=== PATIENT | male | born 1940 | race Caucasian/White ===

== ENCOUNTER 2017-08-17 09:21 | Inpatient (IN) | payer MEDICARE ==
[2017-08-17] MEDS ORDERED: Sodium Chloride 0.9% 1,000 ML IV SCH (10:00)
[2017-08-17] MEDS ORDERED: fentaNYL 100 MCG/2 ML SDV ONE (11:47)
[2017-08-17] MEDS ORDERED: Propofol 200 MG/20 ML SDV ONE ×2 (11:47→11:51)
[2017-08-17] MEDS ORDERED: Dextrose 5%-Lactated Ringers 1,000 ML IV SCH (15:00)
--- NOTE | 2017-08-17 16:27 | PROC ---
DATE OF PROCEDURE: 08/17/2017 PROCEDURE PERFORMED: Esophagogastroduodenoscopy. This had been done because of GI blood loss. The risks and benefits were explained to the patient and was taken to the OR. DESCRIPTION OF PROCEDURE: Anesthesia was given by nurse operational risk analyst. The Olympus 180 scope was used. This was placed into the pharynx and advanced under direct vision, got into the body of the stomach. There was significant erythema noted in the body of the stomach. The tube was advanced and identified the pylorus and the tube was advanced into the 1st and 2nd part of the duodenum. Upon retraction of the tube, noted significant duodenal erythema, pictures were taken of the small intestine and the duodenal bulb area. There were no ulcerations, but significant swelling and with edema was noted. The tube was brought back into the stomach, there was a biopsy done for Helicobacter pylori in the antrum. We got greater and lesser curvature, good observation. The tube was retroflexed into the fundus, which revealed no abnormality. The tube was then advanced into the area where the biopsy was done and there was no bleeding noted. Air was withdrawn from the stomach. There was significant distal esophageal erythema. The remainder of the esophagus was unremarkable. There was some significant amount of mucus noted in the pharynx. I did not get observation of the vocal cords. The tube was removed. The patient tolerated the procedure well. PREOPERATIVE DIAGNOSIS: Gastrointestinal blood loss. POSTOPERATIVE DIAGNOSES: 1. Significant gastric mucosa erythema. 2. Duodenal erythema, biopsy pending. 3. Distal esophageal erythema. 4. Biopsies pending of the antrum for Helicobacter pylori. PROCEDURE PERFORMED: Colonoscopy. The risks and benefits were explained to the patient. DESCRIPTION OF THE PROCEDURE: Anesthesia was given by nurse operational risk analyst. During procedure used 100 mcg of fentanyl, no Versed, and 300 mg of propofol. The Olympus 180L scope was used. It was placed into the rectum and advanced under direct vision. We did get to the cecum with external pressure. Just proximal to the Cecum was a small napkin ring lesion that was biopsied. A picture was also taken. The biopsy report is pending. Upon retraction of the tube, noted no abnormality until we got to 3 cm, noted 2 polyps. One was very difficult to get, but did finally get the one close to the rectum at 29 cm and we tried to basket, could not basket, we finally used suction and did harvest that. The other polyp was still in place, was unable to bend the scope to remove that. The remainder of the colon was unremarkable. Pictures were taken of everything of importance. The tube was removed. The patient tolerated the procedure well. PREOPERATIVE DIAGNOSIS: Gastrointestinal blood loss. POSTOPERATIVE DIAGNOSIS: #1. Two polyps noted at 29 and 31 cm, one was harvested, the polyp was 1.5 cm in size. Another one is still in the colon at just over 30 cm. I feel that he needs a colon resection as there is still material left at the stump of the polyp that was removed. #2. Lesion just proximal to the Cecum biopsied. I will speak with he and his . We will speak with the surgeon to see if he wants to have it done right away. Perez Isaac MD /[id number] MTDD
[2017-08-17] MEDS: Propranolol 10 MG Tab PO SCH ×2 (16:52→21:45)
--- NOTE | 2017-08-17 19:03 | PCM.HP ---
H&P History of Present Illness - General Date of Service: 08/17/17 Admit Problem/Dx: Admission Diagnosis/Problem Admission Diagnosis/Problem Mass of colon Source of Information: Patient History Limitations: Reports: No Limitations - History of Present Illness Initial Comments - Free Text/Narative: This is a 76 year old male who was found to have stool positive for accult blood. He had been having changes in the color of his stool but not black or red in color. He had a colonoscopy and a EGD today. He was found to have 2 polyps at 30 cm and a broad based lesion just prior to the cecum. He was admitted to have a colon resection. Bilateral Abdomen Pain Score (Numeric/FACES): 5 - Related Data Allergies/Adverse Reactions: Allergies Allergy/AdvReac Type Severity Reaction Status Date / Time ANGELICA Inhibitors Allergy Cannot Verified 08/17/17 09:49 Remember diltiazem Allergy Other Verified 08/17/17 09:49 Home Medications: Home Meds Propranolol [Inderal] 20 mg PO QID 08/14/17 [History] cloNIDine [Catapres] 0.1 mg PO BID 08/14/17 [History] Past Medical History HEENT History: Reports: Allergic Rhinitis, Cataract Cardiovascular History: Reports: Hypertension Respiratory History: Reports: SOB Gastrointestinal History: Reports: None Musculoskeletal History: Reports: Arthritis, Other (See Below) Other Musculoskeletal History: rib pain - Infectious Disease History Infectious Disease History: Reports: Chicken Pox - Past Surgical History HEENT Surgical History: Reports: Cataract Surgery Cardiovascular Surgical History: Reports: None Respiratory Surgical History: Reports: None GI Surgical History: Reports: Appendectomy, Other (See Below) Other GI Surgeries/Procedures: pilonidal cyst Musculoskeletal Surgical History: Reports: None Social & Family History - Family History Cardiac: Reports: Hypertension Musculoskeletal: Reports: Arthritis, Back pain, Chronic Neurological: Reports: Alzheimers Disease Other Neurological Family History: father Dermatologic: Reports: None Oncologic: Reports: Bladder Other Oncologic Family History: father - Tobacco Use Smoking Status *Q: Never Smoker Second Hand Smoke Exposure: No - Caffeine Use Caffeine Use: Reports: Coffee - Alcohol Use Days Per Week of Alcohol Use: 5 Number of Drinks Per Day: 2 Total Drinks Per Week: 10 Date of Last Drink: 08/16/17 Time of Last Drink: 18:00 - Recreational Drug Use Recreational Drug Use: No H&P Review of Systems - Review of Systems: Review Of Systems: See Below General: Reports: No Symptoms HEENT: Reports: No Symptoms Pulmonary: Reports: No Symptoms Cardiovascular: Reports: No Symptoms Gastrointestinal: Reports: No Symptoms Genitourinary: Reports: No Symptoms Musculoskeletal: Reports: No Symptoms Skin: Reports: No Symptoms Psychiatric: Reports: No Symptoms Neurological: Reports: No Symptoms Hematologic/Lymphatic: Reports: No Symptoms Exam - Exam Exam: See Below - Vital Signs Vital Signs: Last Vital Signs Temp 97.0 F 08/17/17 16:48 Pulse 65 08/17/17 16:52 Resp 14 08/17/17 16:48 BP 205/94 H 08/17/17 16:52 Pulse Ox 99 08/17/17 16:48 Weight: 165 lb - Exam General: Alert, Oriented, 4 HEENT: PERRLA, Hearing Intact, Mucosa Moist & [place], Nares Patent, Normal Nasal Septum, Posterior Pharynx Clear, Conjunctiva Clear, EOMI, EACs Clear, TMs Clear Neck: Supple, Trachea Midline, 2 Lungs: Clear to Auscultation, Normal Respiratory Effort Cardiovascular: Regular Rate, Regular Rhythm GI/Abdominal Exam: Normal Bowel Sounds, Soft, Non-Tender, No Organomegaly, No Distention, No Abnormal Bruit, No Mass, Pelvis Stable Rectal (Males) Exam: Normal Exam Back Exam: Normal Inspection, Full Range of Motion, NT Extremities: Normal Inspection, Normal Range of Motion, Non-Tender, No Pedal Edema, Normal Capillary Refill Peripheral Pulses: 1+: Radial (L), Radial (R) Skin: Warm, Dry, Intact Neurological: Cranial Nerves Intact, Reflexes Equal Bilateral Neuro Extensive - Motor, Sensory, Reflexes: CN II-XII Intact, Normal Gait, Normal Reflexes DTR: 1+: Bicep (L), Bicep (R) Psychiatric: Alert, Normal Affect, Normal Mood - Patient Data Lab Results Last 24 hrs: Laboratory Results - last 24 hr 08/17/17 08/17/17 08/17/17 Range/Units 15:44 15:44 15:44 WBC 5.4 (4.5-11.0) K/uL RBC 4.71 (4.30-5.90) M/uL Hgb 14.4 (12.0-15.0) g/dL Hct 42.9 (40.0-54.0) % MCV 91 (80-98) fL MCH 31 (27-31) pg MCHC 34 (32-36) % Plt Count 196 (150-400) K/uL Sodium 133 L (140-148) mmol/L Potassium 3.9 (3.6-5.2) mmol/L Chloride 101 (100-108) mmol/L Carbon Dioxide 25 (21-32) mmol/L Anion Gap 10.9 (5.0-14.0) mmol/L BUN 10 (7-18) mg/dL Creatinine 1.1 (0.8-1.3) mg/dL Est Cr Clr Drug Dosing 59.53 mL/min Estimated GFR (MDRD) > 60 (>60) Glucose 137 H (74-106) mg/dL Calcium 8.7 (8.5-10.1) mg/dL Phosphorus 2.9 (2.5-4.9) mg/dL Magnesium 1.8 (1.8-2.4) mg/dL Total Bilirubin 0.7 (0.2-1.0) mg/dL AST 21 (15-37) U/L ALT 25 (12-78) U/L Alkaline Phosphatase 48 (46-116) U/L Total Protein 6.6 (6.4-8.2) g/dL Albumin 3.5 (3.4-5.0) g/dL Globulin 3.1 (2.3-3.5) g/dL Albumin/Globulin Ratio 1.1 L (1.2-2.2) Result Diagrams: 08/17/17 15:44 08/17/17 15:44 Cruz Results Last 24 hrs: Microbiology 08/17/17 11:50 CLOtest - Final Stomach Positive Clotest *Q Meaningful Use (ADM) - VTE *Q VTE Criteria *Q: - Stroke *Q Stroke Criteria *Q: - AMI *Q AMI Criteria *Q: Problem List Initiated/Reviewed/Updated: Yes Orders Last 24hrs: Active Orders 24 hr Category Date Time Status Admission Status [Patient Status] [ADT] Routine ADT 08/17/17 13:00 Active Ambulate [RC] QID Care 08/17/17 15:27 Active Communication Order [RC] ASDIRECTED Care 08/17/17 15:35 Active Intake and Output Strict [RC] ASDIRECTED Care 08/17/17 15:41 Active Notify Provider Consults [RC] ASDIRECTED Care 08/17/17 13:38 Active Up ad Liliam [RC] ASDIRECTED Care 08/17/17 13:35 Active Up to Chair [RC] QID Care 08/17/17 15:27 Active Verify Patient Consent Obtain [RC] ASDIRECTED Care 08/17/17 15:32 Active Vital Signs [RC] Q4H Care 08/17/17 15:27 Active Consult to Physician [CONS] Routine Cons 08/17/17 13:36 Ordered Clear Liquid Diet [DIET] Diet 08/17/17 Dinner Active NPO After Midnight [Nothing per Oral After Midnight Diet 08/18/17 Breakfast Active Diet] [DIET] CEA [REF] Routine Lab 08/17/17 15:44 Received Alvimopan [Entereg] Med 08/18/17 08:00 Once 12 mg PO ONETIME ONE Dextrose 5%-Lactated Ringers 1,000 ml Med 08/17/17 15:00 Active IV ASDIRECTED Docusate Sodium/Sennosides [Senna Plus] Med 08/17/17 21:00 Active 2 tab PO BEDTIME Propranolol [Inderal] Med 08/17/17 16:00 Active 20 mg PO QID cefOXitin [Mefoxin] 2 gm Med 08/18/17 10:00 Active Sodium Chloride 0.9% [Normal Saline] 50 ml IV ONETIME SCD [Sequential Compression Device] [OM.PC] Routine Oth 08/17/17 13:38 Ordered Code Status [Resuscitation Status] Routine Resus Stat 08/17/17 13:34 Ordered Medication Orders Alvimopan (Entereg) 12 mg PO ONETIME ONE Stop: 08/18/17 08:01 Dextrose/Lactated Ringer's (Dextrose 5%-Lactated Ringers) 1,000 mls @ 100 mls/ hr IV ASDIRECTED CEDRICK Cefoxitin Sodium 2 gm/ Sodium (Chloride) 50 mls @ 100 mls/hr IV ONETIME ONE Stop: 08/18/17 10:29 Propranolol HCl (Inderal) 20 mg PO QID CEDRICK Last Admin: 08/17/17 16:52 Dose: 20 mg Senna/Docusate Sodium (Senna Plus) 2 tab PO BEDTIME CEDRICK Stop: 08/17/17 21:01 Assessment/Plan Comment:: Assessment/Plan: #1. Colonic polyps at 30 cm and broad based lesion at proximal to the cecum. #2. Hypertension: Will continue with Propanolol and add Caudura tonight. EKG is pending and labs evual. If these are normal he will be stable for the surgery as planned.
[2017-08-17] MEDS ORDERED: cloNIDine 0.1 MG Tab PO ONE ×2 (19:19→23:30)
[2017-08-18] MEDS ORDERED: Ondansetron 4 MG/2 ML SDV ONE (06:14)
[2017-08-18] MEDS ORDERED: Glycopyrrolate 0.2 MG/ML 5 ML MDV ONE (06:14)
[2017-08-18] MEDS ORDERED: Rocuronium 50 MG/5 ML Vial ONE (06:14)
[2017-08-18] MEDS ORDERED: Neostigmine Methylsulfate 1 MG/ML 5 ML Syringe ONE (06:14)
[2017-08-18] MEDS ORDERED: Succinylcholine 200 MG/10 ML MDV ONE (06:14)
[2017-08-18] MEDS ORDERED: Propofol 200 MG/20 ML SDV ONE (06:14)
[2017-08-18] MEDS ORDERED: Dexamethasone 4 MG/ML SDV ONE (06:14)
[2017-08-18] MEDS: Propranolol 10 MG Tab PO SCH ×3 (06:34→09:42)
[2017-08-18] MEDS ORDERED: Naloxone 0.4 MG/ML SDV IVPUSH PRN (08:49)
--- NOTE | 2017-08-18 09:07 | PN ---
DATE OF SERVICE: 08/18/2017 SUBJECTIVE: Ron is n.p.o. He will be having surgery today with general anesthesia. OBJECTIVE: GENERAL: Ron is a 76-year-old male. VITAL SIGNS: TPR is 95.5, 60, 16. Blood pressure 122/86. Dr. Marshall preoped the patient. Discussed surgery. Instructions were given as well as discussion of possible risks and possible complications. ASSESSMENT: Abnormal colonoscopy, anxiety, essential hypertension. PLAN: To remain n.p.o. Laparotomy scheduled for today. Case to follow. Orders to be written postoperatively. Ignacia Franklin PA-C /[id number]
[2017-08-18] MEDS ORDERED: cefOXitin 2 GM in Sodium Chloride 0.9% 50 ML IV ONE (10:00)
[2017-08-18] MEDS ORDERED: Lactated Ringers 1,000 ML ONE ×2 (10:27→11:45)
[2017-08-18] MEDS ORDERED: Sodium Chloride 0.9% 10 ML ONE (10:27)
[2017-08-18] MEDS ORDERED: Meropenem 500 MG SDV ONE ×2 (10:50→11:56)
[2017-08-18] MEDS ORDERED: diphenhydrAMINE 50 MG/ML SDV IVPUSH PRN (14:25)
[2017-08-18] MEDS ORDERED: Meperidine PF 75 MG/ML Syringe IM PRN (14:29)
[2017-08-18] MEDS: Dextrose 5%-Lactated Ringers 1,000 ML IV SCH ×2 (14:44→20:29)
[2017-08-18] MEDS: fentaNYL 2,500 MCG in Sodium Chloride 0.9% 200 ML EPIDUR SCH (15:45)
[2017-08-18] MEDS: cefOXitin 2 GM in Sodium Chloride 0.9% 50 ML IV SCH ×2 (15:52→20:29)
[2017-08-18] MEDS ORDERED: Scopolamine 1.5 MG Transdermal Patch TOP SCH (16:00)
[2017-08-18] MEDS: Metoclopramide 10 MG/2 ML SDV IV SCH ×2 (16:00→21:25)
[2017-08-18] MEDS ORDERED: Pantoprazole 40 MG Vial IV ONE (16:30)
[2017-08-18] MEDS: Tamsulosin 0.4 MG Cap.ER PO SCH (20:23)
--- NOTE | 2017-08-18 22:32 | PCM.PN ---
- General Info Date of Service: 08/18/17 Admission Dx/Problem (Free Text): Saw him now before and after surgery and is stable he having no complaints. Functional Status: Reports: Pain Controlled - Review of Systems HEENT: Reports: No Symptoms Pulmonary: Reports: No Symptoms Cardiovascular: Reports: No Symptoms Gastrointestinal: Reports: Abdominal Pain Genitourinary: Reports: No Symptoms Musculoskeletal: Reports: No Symptoms Neurological: Reports: No Symptoms Psychiatric: Reports: No Symptoms - Patient Data Vitals - Most Recent: Last Vital Signs Temp 99.9 F 08/18/17 20:00 Pulse 87 08/18/17 20:00 Resp 14 08/18/17 20:00 BP 154/86 H 08/18/17 20:00 Pulse Ox 98 08/18/17 20:00 Weight - Most Recent: 165 lb I&O - Last 24 Hours: Intake & Output 08/18/17 08/18/17 08/18/17 06:59 14:59 22:59 Intake Total 651 47 0990 Output Total 800 1065 655 Balance -11 -8385 780 Med Orders - Current: Current Medications Acetaminophen (Tylenol Extra Strength) 1,000 mg PO Q6H CEDRICK Alvimopan (Entereg) 12 mg PO BID CEDRICK Last Admin: 08/18/17 20:23 Dose: 12 mg Bisacodyl (Dulcolax) 10 mg PO BID CEDRICK Diphenhydramine HCl (Benadryl) 25 mg IVPUSH Q6H PRN PRN Reason: ITCHING Fentanyl 2,500 mcg/ Sodium (Chloride) 250 mls @ 0 mls/hr EPIDUR TITRATE CEDRICK; Titrate PRN Reason: Protocol Last Admin: 08/18/17 15:45 Dose: 12 mls/hr, 12 mls/hr Dextrose/Lactated Ringer's (Dextrose 5%-Lactated Ringers) 1,000 mls @ 175 mls/ hr IV ASDIRECTED CEDRICK Last Admin: 08/18/17 20:29 Dose: 175 mls/hr Cefoxitin Sodium 2 gm/ Sodium (Chloride) 50 mls @ 100 mls/hr IV Q6H CEDRICK Stop: 08/19/17 03:59 Last Admin: 08/18/17 20:29 Dose: 100 mls/hr Acetaminophen (Ofirmev) 100 mls @ 400 mls/hr IV Q6H CEDRICK Stop: 08/19/17 00:14 Last Admin: 08/18/17 17:55 Dose: 400 mls/hr Ibuprofen (Motrin) 600 mg PO Q6H [facility] Meperidine HCl (Demerol) 75 mg IM ASDIRECTED PRN PRN Reason: PAIN Stop: 08/19/17 08:00 Metoclopramide HCl (Reglan) 10 mg IV Q6H [facility] Last Admin: 08/18/17 21:25 Dose: 10 mg Miscellaneous Information (Remove Patch) 1 ea TRDERM ONETIME ONE Stop: 08/21/17 14:01 Naloxone HCl (Narcan) 0.1 mg IVPUSH Q5M PRN PRN Reason: RESP RATE LESS THAN 6/MINUTE Ondansetron HCl (Zofran) 4 mg IV Q4H PRN PRN Reason: N/V Pantoprazole Sodium (Protonix) 40 mg PO ACBREAKFAST [facility] Scopolamine (Transderm-Scop) 1.5 mg TOP Q72H [facility] Stop: 08/21/17 15:45 Last Admin: 08/18/17 15:22 Dose: 1.5 mg Senna/Docusate Sodium (Senna Plus) 2 tab PO DAILY [facility] Last Admin: 08/18/17 20:23 Dose: 2 tab Tamsulosin HCl (Flomax) 0.4 mg PO BEDTIME [facility] Last Admin: 08/18/17 20:23 Dose: 0.4 mg Discontinued Medications Alvimopan (Entereg) 12 mg PO ONETIME ONE Stop: 08/18/17 08:01 Last Admin: 08/18/17 07:26 Dose: 12 mg Clonidine HCl (Catapres) 0.1 mg PO ONETIME ONE Stop: 08/17/17 19:20 Last Admin: 08/17/17 19:32 Dose: 0.1 mg Clonidine HCl (Catapres) 0.1 mg PO ONETIME ONE Stop: 08/17/17 23:31 Last Admin: 08/17/17 23:21 Dose: Not Given Dexamethasone (Dexamethasone) Confirm Administered Dose 4 mg .ROUTE .STK-MED ONE Stop: 08/18/17 06:15 Fentanyl (Sublimaze) Confirm Administered Dose 100 mcg .ROUTE .STK-MED ONE Stop: 08/17/17 11:48 Fentanyl Citrate (Fentanyl) Confirm Administered Dose 500 mcg .ROUTE .STK-MED ONE Stop: 08/18/17 06:15 Glycopyrrolate (Robinul) Confirm Administered Dose 1 mg .ROUTE .STK-MED ONE Stop: 08/18/17 06:15 Sodium Chloride (Normal Saline) 1,000 mls @ 100 mls/hr IV ASDIRECTED [facility] Last Admin: 08/17/17 10:07 Dose: 100 mls/hr Dextrose/Lactated Ringer's (Dextrose 5%-Lactated Ringers) 1,000 mls @ 100 mls/ hr IV ASDIRECTED [facility] Last Admin: 08/18/17 02:24 Dose: 100 mls/hr Cefoxitin Sodium 2 gm/ Sodium (Chloride) 50 mls @ 100 mls/hr IV ONETIME ONE Stop: 08/18/17 10:29 Last Admin: 08/18/17 09:49 Dose: 100 mls/hr Sodium Chloride (Normal Saline) Confirm Administered Dose 10 mls @ as directed .ROUTE .STK-MED ONE Stop: 08/18/17 10:28 Lactated Ringer's (Ringers, Lactated) Confirm Administered Dose 1,000 mls @ as directed .ROUTE .STK-MED ONE Stop: 08/18/17 10:28 Acetaminophen (Ofirmev) Confirm Administered Dose 100 mls @ as directed IV .STK- MED ONE Stop: 08/18/17 10:28 Lactated Ringer's (Ringers, Lactated) Confirm Administered Dose 1,000 mls @ as directed .ROUTE .STK-MED ONE Stop: 08/18/17 11:46 Meropenem (Merrem) Confirm Administered Dose 500 mg .ROUTE .STK-MED ONE Stop: 08/18/17 10:51 Last Admin: 08/18/17 12:00 Dose: 500 mg Meropenem (Merrem) Confirm Administered Dose 500 mg .ROUTE .STK-MED ONE Stop: 08/18/17 11:57 Last Admin: 08/18/17 12:04 Dose: 500 mg Neostigmine Methylsulfate (Neostigmine) Confirm Administered Dose 5 mg .ROUTE .STK-MED ONE Stop: 08/18/17 06:15 Ondansetron HCl (Zofran) Confirm Administered Dose 4 mg .ROUTE .STK-MED ONE Stop: 08/18/17 06:15 Pantoprazole Sodium (Protonix Iv) 40 mg IV ONETIME ONE Stop: 08/18/17 16:31 Last Admin: 08/18/17 16:05 Dose: 40 mg Propofol (Diprivan 20 Ml) Confirm Administered Dose 200 mg .ROUTE .STK-MED ONE Stop: 08/17/17 11:48 Propofol (Diprivan 20 Ml) Confirm Administered Dose 200 mg .ROUTE .STK-MED ONE Stop: 08/17/17 11:52 Propofol (Diprivan 20 Ml) Confirm Administered Dose 200 mg .ROUTE .STK-MED ONE Stop: 08/18/17 06:15 Propranolol HCl (Inderal) 20 mg PO QID [facility] Last Admin: 08/18/17 09:42 Dose: Not Given Rocuronium [place] (Zemuron) Confirm Administered Dose 50 mg .ROUTE .STK-MED ONE Stop: 08/18/17 06:15 Senna/Docusate Sodium (Senna Plus) 2 tab PO BEDTIME CEDRICK Stop: 08/17/17 21:01 Last Admin: 08/17/17 21:23 Dose: 2 tab Succinylcholine Chloride (Quelicin) Confirm Administered Dose 200 mg .ROUTE .STK -MED ONE Stop: 08/18/17 06:15 - Exam General: Alert, Oriented Lungs: Clear to Auscultation, Normal Respiratory Effort Extremities: Normal Inspection, Normal Range of Motion, Non-Tender, No Pedal Edema, Normal Capillary Refill Peripheral Pulses: 1+: Radial (L), Radial (R) Psy/Mental Status: Alert, Normal Affect, Normal Mood - Problem List Review Problem List Initiated/Reviewed/Updated: Yes - Assessment Assessment:: Assessment/Plan: #1. S/P surgery doing well. BP elevated but stable. @2. HTN: Will need to restart Inderal tomorrow. - Plan Plan:: Assessment/Plan: #1. Colonic polyps at 30 cm and broad based lesion at proximal to the cecum. #2. Hypertension: Will continue with Propanolol and add Caudura tonight. EKG is pending and labs evual. If these are normal he will be stable for the surgery as planned.
[2017-08-19] MEDS: cefOXitin 2 GM in Sodium Chloride 0.9% 50 ML IV SCH (03:11)
[2017-08-19] MEDS: Metoclopramide 10 MG/2 ML SDV IV SCH ×4 (03:11→22:01)
[2017-08-19] MEDS: Dextrose 5%-Lactated Ringers 1,000 ML IV SCH ×3 (03:16→22:20)
[2017-08-19] MEDS: fentaNYL 2,500 MCG in Sodium Chloride 0.9% 200 ML EPIDUR SCH (05:35)
[2017-08-19] MEDS: Acetaminophen 500 MG Tab PO SCH ×4 (05:40→23:25)
[2017-08-19] MEDS: Pantoprazole 40 MG Tab.CR PO SCH (07:31)
[2017-08-19] MEDS: Bisacodyl 5 MG Tab PO SCH ×2 (08:14→22:00)
[2017-08-19] MEDS ORDERED: Metoprolol Succinate 50 MG Tab.ER PO SCH (09:00)
[2017-08-19] MEDS: Ibuprofen 600 MG Tab PO SCH ×3 (09:41→22:01)
[2017-08-19] MEDS ORDERED: cloNIDine 0.1 MG Tab PO ONE ×2 (13:15→15:10)
[2017-08-19] MEDS ORDERED: Furosemide 20 MG/2 ML VIAL IVPUSH ONE (17:15)
--- NOTE | 2017-08-19 18:02 | PN ---
DATE OF SERVICE: 08/19/2017 SUBJECTIVE: Ron is postop day 1. His pain is controlled. He is sitting up in the chair. He had a temp max of 100.4. TAMERA drain put out 160 mL of a light pink serosanguineous drainage. REVIEW OF SYSTEMS: Remainder of review of systems negative for any pertinent positives and negatives. OBJECTIVE: GENERAL: Ron Hong is a pleasant 76-year-old male. He is alert and orientated, sitting up in the chair. VITAL SIGNS: TPR 97.9, 117, 16, blood pressure 162/89. HEENT: Negative. NECK: Supple. HEART: Regular rate and rhythm. LUNGS: Clear. ABDOMEN: Dressings dry and intact. Abdominal binder is on. TAMERA drain has put out 160 mL of a light pink serosanguineous drainage. EXTREMITIES: SCDs are on. There is no peripheral edema. ASSESSMENT: 1. Esophagogastroduodenoscopy and colonoscopy with biopsies; date 08/17/2017; Perez Isaac MD. 2. Sigmoid colon resection; Armand Marshall MD; date 08/18/2017. PLAN: 1. Leave Frances catheter in for accurate intake and output. 2. Decrease IV to 80 mL/h. 3. Hypertension, treated and followed by Perez Isaac MD. 4. Good pulmonary toilet encouraged. 5. We will evaluate p.r.n. or in a.m. Ignacia Franklin PA-C /[id number]
[2017-08-19] MEDS ORDERED: LORazepam 2 MG/ML MDV IVPUSH PRN (20:13)
[2017-08-19] MEDS: Metoprolol Tartrate 5 MG/5 ML SDV IVPUSH SCH (21:28)
--- NOTE | 2017-08-19 21:41 | PCM.PN ---
- General Info Date of Service: 08/19/17 Subjective Update: He has no complaint. - Review of Systems General: Reports: No Symptoms HEENT: Reports: No Symptoms Pulmonary: Reports: No Symptoms Cardiovascular: Reports: No Symptoms Gastrointestinal: Reports: Abdominal Pain Genitourinary: Reports: No Symptoms Musculoskeletal: Reports: No Symptoms Neurological: Reports: No Symptoms Psychiatric: Reports: No Symptoms - Patient Data Vitals - Most Recent: Last Vital Signs Temp 99 F 08/19/17 19:51 Pulse 95 08/19/17 21:35 Resp 20 08/19/17 19:51 BP 150/95 H 08/19/17 21:35 Pulse Ox 99 08/19/17 19:51 Weight - Most Recent: 165 lb I&O - Last 24 Hours: Intake & Output 08/19/17 08/19/17 08/19/17 06:59 14:59 22:59 Intake Total 1041 2040 1550 Output Total 2140 495 587 Balance -1099 1545 963 Lab Results Last 24 Hours: Laboratory Results - last 24 hr 08/17/17 Range/Units 15:44 Carcinoembryonic Ag 1.1 (0.0-3.7) ng/mL Med Orders - Current: Current Medications Acetaminophen (Tylenol Extra Strength) 1,000 mg PO Q6H [facility] Last Admin: 08/19/17 17:21 Dose: 1,000 mg Alvimopan (Entereg) 12 mg PO BID [facility] Last Admin: 08/19/17 08:14 Dose: 12 mg Bisacodyl (Dulcolax) 10 mg PO BID [facility] Last Admin: 08/19/17 08:14 Dose: 10 mg Diphenhydramine HCl (Benadryl) 25 mg IVPUSH Q6H PRN PRN Reason: ITCHING Fentanyl 2,500 mcg/ Sodium (Chloride) 250 mls @ 0 mls/hr EPIDUR TITRATE [facility]ICK; Titrate PRN Reason: Protocol Last Admin: 08/19/17 05:35 Dose: 12 mls/hr, 12 mls/hr Dextrose/Lactated Ringer's (Dextrose 5%-Lactated Ringers) 1,000 mls @ 80 mls/ hr IV ASDIRECTED [facility] Last Admin: 08/19/17 10:32 Dose: 80 mls/hr Ibuprofen (Motrin) 600 mg PO Q6H [facility] Last Admin: 08/19/17 16:37 Dose: 600 mg Lorazepam (Ativan) 0.5 mg IVPUSH Q2H PRN PRN Reason: Anxiety Metoclopramide HCl (Reglan) 10 mg IV Q6H [facility] Last Admin: 08/19/17 16:38 Dose: 10 mg Metoprolol Succinate (Toprol Xl) 100 mg PO DAILY [facility] Last Admin: 08/19/17 10:01 Dose: 100 mg Metoprolol Tartrate (Lopressor) 5 mg IVPUSH Q6H [facility] Last Admin: 08/19/17 21:28 Dose: 5 mg Miscellaneous Information (Remove Patch) 1 ea TRDERM ONETIME ONE Stop: 08/21/17 14:01 Naloxone HCl (Narcan) 0.1 mg IVPUSH Q5M PRN PRN Reason: RESP RATE LESS THAN 6/MINUTE Ondansetron HCl (Zofran) 4 mg IV Q4H PRN PRN Reason: N/V Pantoprazole Sodium (Protonix) 40 mg PO ACBREAKFAST [facility] Last Admin: 08/19/17 07:31 Dose: 40 mg Scopolamine (Transderm-Scop) 1.5 mg TOP Q72H [facility] Stop: 08/21/17 15:45 Last Admin: 08/18/17 15:22 Dose: 1.5 mg Senna/Docusate Sodium (Senna Plus) 2 tab PO DAILY [facility] Last Admin: 08/19/17 08:14 Dose: 2 tab Tamsulosin HCl (Flomax) 0.4 mg PO BEDTIME [facility] Last Admin: 08/18/17 20:23 Dose: 0.4 mg Discontinued Medications Alvimopan (Entereg) 12 mg PO ONETIME ONE Stop: 08/18/17 08:01 Last Admin: 08/18/17 07:26 Dose: 12 mg Clonidine HCl (Catapres) 0.1 mg PO ONETIME ONE Stop: 08/17/17 19:20 Last Admin: 08/17/17 19:32 Dose: 0.1 mg Clonidine HCl (Catapres) 0.1 mg PO ONETIME ONE Stop: 08/17/17 23:31 Last Admin: 08/17/17 23:21 Dose: Not Given Clonidine HCl (Catapres) 0.2 mg PO ONETIME ONE Stop: 08/19/17 13:16 Last Admin: 08/19/17 13:20 Dose: 0.2 mg Clonidine HCl (Catapres) 0.2 mg PO ONETIME ONE Stop: 08/19/17 15:11 Last Admin: 08/19/17 15:11 Dose: 0.2 mg Dexamethasone (Dexamethasone) Confirm Administered Dose 4 mg .ROUTE .[facility] ONE Stop: 08/18/17 06:15 Fentanyl (Sublimaze) Confirm Administered Dose 100 mcg .ROUTE .[facility] ONE Stop: 08/17/17 11:48 Fentanyl Citrate (Fentanyl) Confirm Administered Dose 500 mcg .ROUTE .[facility] ONE Stop: 08/18/17 06:15 Furosemide (Lasix) 20 mg IVPUSH ONETIME ONE Stop: 08/19/17 17:16 Last Admin: 08/19/17 17:20 Dose: 20 mg Glycopyrrolate (Robinul) Confirm Administered Dose 1 mg .ROUTE .[facility] ONE Stop: 08/18/17 06:15 Sodium Chloride (Normal Saline) 1,000 mls @ 100 mls/hr IV ASDIRECTED [facility] Last Admin: 08/17/17 10:07 Dose: 100 mls/hr Dextrose/Lactated Ringer's (Dextrose 5%-Lactated Ringers) 1,000 mls @ 100 mls/ [facility] Admin: 08/18/17 02:24 Dose: 100 mls/hr Cefoxitin Sodium 2 gm/ Sodium (Chloride) 50 mls @ 100 mls/hr IV ONETIME ONE Stop: 08/18/17 10:29 Last Admin: 08/18/17 09:49 Dose: 100 mls/hr Sodium Chloride (Normal Saline) Confirm Administered Dose 10 mls @ as directed .ROUTE .[facility] Stop: 08/18/17 10:28 Lactated Ringer's (Ringers, Lactated) Confirm Administered Dose 1,000 mls @ as directed .ROUTE [facility] ONE Stop: 08/18/17 10:28 Acetaminophen (Ofirmev) Confirm Administered Dose 100 mls @ as directed IV .[facility] ONE Stop: 08/18/17 10:28 Lactated Ringer's (Ringers, Lactated) Confirm Administered Dose 1,000 mls @ as directed .ROUTE [facility] ONE Stop: 08/18/17 11:46 Dextrose/Lactated Ringer's (Dextrose 5%-Lactated Ringers) 1,000 mls @ 175 mls/ hr IV ASDIRECTED [facility] Last Admin: 08/19/17 03:16 Dose: 175 mls/hr Cefoxitin Sodium 2 gm/ Sodium (Chloride) 50 mls @ 100 mls/hr IV Q6H [facility] Stop: 08/19/17 03:59 Last Admin: 08/19/17 03:11 Dose: 100 mls/hr Acetaminophen (Ofirmev) 100 mls @ 400 mls/hr IV Q6H [facility] Stop: 08/19/17 00:14 Last Admin: 08/18/17 23:08 Dose: 400 mls/hr Meperidine HCl (Demerol) 75 mg IM ASDIRECTED PRN PRN Reason: PAIN Stop: 08/19/17 08:00 Meropenem (Merrem) Confirm Administered Dose 500 mg .ROUTE .STK-MED ONE Stop: 08/18/17 10:51 Last Admin: 08/18/17 12:00 Dose: 500 mg Meropenem (Merrem) Confirm Administered Dose 500 mg .ROUTE .STK-MED ONE Stop: 08/18/17 11:57 Last Admin: 08/18/17 12:04 Dose: 500 mg Neostigmine Methylsulfate (Neostigmine) Confirm Administered Dose 5 mg .ROUTE .STK-MED ONE Stop: 08/18/17 06:15 Ondansetron HCl (Zofran) Confirm Administered Dose 4 mg .ROUTE .STK-MED ONE Stop: 08/18/17 06:15 Pantoprazole Sodium (Protonix Iv) 40 mg IV ONETIME ONE Stop: 08/18/17 16:31 Last Admin: 08/18/17 16:05 Dose: 40 mg Propofol (Diprivan 20 Ml) Confirm Administered Dose 200 mg .ROUTE .STK-MED ONE Stop: 08/17/17 11:48 Propofol (Diprivan 20 Ml) Confirm Administered Dose 200 mg .ROUTE .STK-MED ONE Stop: 08/17/17 11:52 Propofol (Diprivan 20 Ml) Confirm Administered Dose 200 mg .ROUTE .STK-MED ONE Stop: 08/18/17 06:15 Propranolol HCl (Inderal) 20 mg PO QID [facility] Last Admin: 08/18/17 09:42 Dose: Not Given Rocuronium [place] (Zemuron) Confirm Administered Dose 50 mg .ROUTE .STK-MED ONE Stop: 08/18/17 06:15 Senna/Docusate Sodium (Senna Plus) 2 tab PO BEDTIME [facility] Stop: 08/17/17 21:01 Last Admin: 08/17/17 21:23 Dose: 2 tab Succinylcholine Chloride (Quelicin) Confirm Administered Dose 200 mg .ROUTE .STK -MED ONE Stop: 08/18/17 06:15 - Exam General: Alert, Oriented HEENT: Pupils Equal, Pupils Reactive, EOMI, Mucous Membr. Moist/[place] Neck: Supple Lungs: Clear to Auscultation, Normal Respiratory Effort Cardiovascular: Regular Rate, Regular Rhythm Back Exam: Normal Inspection, Full Range of Motion Extremities: Normal Inspection, Normal Range of Motion, Non-Tender, No Pedal Edema, Normal Capillary Refill Peripheral Pulses: 1+: Radial (L), Radial (R) Neurological: No New Focal Deficit - Problem List Review Problem List Initiated/Reviewed/Updated: Yes - My Orders Last 24 Hours: My Active Orders 08/19/17 09:00 Metoprolol Succinate [Toprol XL] 100 mg PO DAILY - Plan Plan:: Assessment/Plan: #1. Colon resection: Closure tomorrow #2. Hypertension: I will increase Metoprolol to 200 mg post surgery and add cardura instead of Clonidine.
[2017-08-19] MEDS: Tamsulosin 0.4 MG Cap.ER PO SCH (22:01)
[2017-08-20] MEDS: fentaNYL 2,500 MCG in Sodium Chloride 0.9% 200 ML EPIDUR SCH (02:17)
[2017-08-20] MEDS: Ibuprofen 600 MG Tab PO SCH ×4 (04:25→21:15)
[2017-08-20] MEDS: Metoclopramide 10 MG/2 ML SDV IV SCH ×4 (04:25→21:15)
[2017-08-20] MEDS: Metoprolol Tartrate 5 MG/5 ML SDV IVPUSH SCH (04:33)
[2017-08-20] MEDS: Acetaminophen 500 MG Tab PO SCH ×3 (05:02→17:35)
[2017-08-20] MEDS ORDERED: Propofol 200 MG/20 ML SDV ONE (06:21)
[2017-08-20] MEDS ORDERED: Meropenem 500 MG SDV ONE (06:41)
[2017-08-20] MEDS ORDERED: Bupivacaine 0.5% 50 ML MDV ONE (06:41)
[2017-08-20] MEDS ORDERED: Lidocaine 1% with EPINEPHrine 1:100,000 50 ML MDV ONE (06:41)
--- NOTE | 2017-08-20 08:58 | PN ---
DATE OF SERVICE: 08/20/2017 SUBJECTIVE: He has had his pain controlled. It is a 2/10. He has been having some hypertension episodes. Blood pressure has been 171/92. He did receive see some IV Lopressor and his hypertension is managed by Perez Isaac MD. He reports a large bowel movements, up ambulating, using his incentive spirometer. REVIEW OF SYSTEMS: Remainder of review of systems negative for any pertinent positives and negatives. OBJECTIVE: GENERAL: Ron is a 76-year-old male. VITAL SIGNS: TPR 98.2, 79, 16. Blood pressure 162/69. HEENT: Negative. NECK: Supple. HEART: Regular rate and rhythm. LUNGS: Clear. ABDOMEN: Dressings dry and intact. Abdominal binder is on. EXTREMITIES: Without peripheral edema. ASSESSMENT: 1. Delayed primary closure today 08/20/2017. 2. Esophagogastroduodenoscopy and colonoscopy with biopsies 08/17/2017, Perez Isaac MD. 3. Sigmoid colon resection, Armand Marshall MD, 08/18/2017. PLAN: 1. Discontinue IV Lopressor. 2. Discontinue Dulcolax tablets. 3. Discontinue Senna S. 4. Discontinue Entereg. 5. Orders to be written post delayed primary closure. 6. We will evaluate p.r.n. or in a.m. Ignacia Franklin PA-C /[id number]
[2017-08-20] MEDS: Pantoprazole 40 MG Tab.CR PO SCH (09:57)
[2017-08-20] MEDS: Magnesium Sulfate/Water 2 GM in Premix Bag 1 BAG IV SCH ×2 (10:03→13:40)
[2017-08-20] MEDS: Metoprolol Succinate 50 MG Tab.ER PO SCH (10:29)
[2017-08-20] MEDS ORDERED: MAGNESIUM SULFATE IV SCH (18:00)
[2017-08-20] MEDS ORDERED: WATER IV SCH (18:00)
[2017-08-20] MEDS ORDERED: SODIUM CHLORIDE 0.9% IV SCH (18:00)
--- NOTE | 2017-08-20 18:52 | PCM.PN ---
- General Info Date of Service: 08/20/17 Functional Status: Reports: Pain Controlled - Review of Systems General: Reports: Weakness HEENT: Reports: No Symptoms Pulmonary: Reports: No Symptoms Cardiovascular: Reports: No Symptoms Gastrointestinal: Reports: Diarrhea Genitourinary: Reports: No Symptoms Musculoskeletal: Reports: No Symptoms Psychiatric: Reports: No Symptoms - Patient Data Vitals - Most Recent: Last Vital Signs Temp 97.1 F 08/20/17 14:57 Pulse 78 08/20/17 14:57 Resp 18 08/20/17 14:57 BP 170/92 H 08/20/17 14:57 Pulse Ox 97 08/20/17 14:57 Weight - Most Recent: 165 lb I&O - Last 24 Hours: Intake & Output 08/20/17 08/20/17 08/20/17 06:59 14:59 22:59 Intake Total 3304 1080 50 Output Total 400 150 Balance 2904 930 50 Lab Results Last 24 Hours: Laboratory Results - last 24 hr 08/17/17 08/20/17 Range/Units 15:44 04:02 Sodium 124 L (140-148) mmol/L Potassium 3.9 (3.6-5.2) mmol/L Chloride 91 L (100-108) mmol/L Carbon Dioxide 24 (21-32) mmol/L Anion Gap 12.9 (5.0-14.0) mmol/L BUN 12 (7-18) mg/dL Creatinine 1.1 (0.8-1.3) mg/dL Est Cr Clr Drug Dosing 59.53 mL/min Estimated GFR (MDRD) > 60 (>60) Glucose 126 H (74-106) mg/dL Calcium 8.2 L (8.5-10.1) mg/dL Phosphorus 3.2 (2.5-4.9) mg/dL Magnesium 1.2 L D (1.8-2.4) mg/dL NT-Pro-B Natriuret Pep 687 H (5-450) pg/mL Carcinoembryonic Ag 1.1 (0.0-3.7) ng/mL Med Orders - Current: Current Medications Acetaminophen (Tylenol Extra Strength) 1,000 mg PO Q6H [facility] Last Admin: 08/20/17 17:35 Dose: 1,000 mg Doxazosin Mesylate (Cardura) 4 mg PO Q24H [facility] Potassium Chloride/Dextrose/Sod Cl (D5 Ns With 20 Meq Kcl) 1,000 mls @ 80 mls/ hr IV ASDIRECTED [facility] Magnesium Sulfate 2 gm/ Sodium (Chloride) 54 mls @ 27 mls/hr IV Q4H [facility] Stop: 08/22/17 07:59 Last Admin: 08/20/17 17:40 Dose: 27 mls/hr Ibuprofen (Motrin) 600 mg PO Q6H [facility] Last Admin: 08/20/17 15:26 Dose: 600 mg Lorazepam (Ativan) 0.5 mg IVPUSH Q2H PRN PRN Reason: Anxiety Last Admin: 08/19/17 22:15 Dose: 0.5 mg Metoclopramide HCl (Reglan) 10 mg IV Q6H [facility] Last Admin: 08/20/17 15:26 Dose: 10 mg Metoprolol Succinate (Toprol Xl) 200 mg PO DAILY [facility] Last Admin: 08/20/17 10:29 Dose: 200 mg Miscellaneous Information (Remove Patch) 1 ea TRDERM ONETIME ONE Stop: 08/21/17 14:01 Ondansetron HCl (Zofran) 4 mg IV Q4H PRN PRN Reason: N/V Pantoprazole Sodium (Protonix) 40 mg PO ACBREAKFAST [facility] Last Admin: 08/20/17 09:57 Dose: 40 mg Scopolamine (Transderm-Scop) 1.5 mg TOP Q72H [facility] Stop: 08/21/17 15:45 Last Admin: 08/18/17 15:22 Dose: 1.5 mg Tamsulosin HCl (Flomax) 0.4 mg PO BEDTIME [facility] Last Admin: 08/19/17 22:01 Dose: 0.4 mg Discontinued Medications Alvimopan (Entereg) 12 mg PO ONETIME ONE Stop: 08/18/17 08:01 Last Admin: 08/18/17 07:26 Dose: 12 mg Alvimopan (Entereg) 12 mg PO BID [facility] Last Admin: 08/19/17 22:01 Dose: 12 mg Bisacodyl (Dulcolax) 10 mg PO BID [facility] Last Admin: 08/19/17 22:00 Dose: 10 mg Bupivacaine HCl (Marcaine 0.5%) Confirm Administered Dose 50 ml .ROUTE .STK-MED ONE Stop: 08/20/17 06:42 Last Admin: 08/20/17 07:30 Dose: 10 ml Clonidine HCl (Catapres) 0.1 mg PO ONETIME ONE Stop: 08/17/17 19:20 Last Admin: 08/17/17 19:32 Dose: 0.1 mg Clonidine HCl (Catapres) 0.1 mg PO ONETIME ONE Stop: 08/17/17 23:31 Last Admin: 08/17/17 23:21 Dose: Not Given Clonidine HCl (Catapres) 0.2 mg PO ONETIME ONE Stop: 08/19/17 13:16 Last Admin: 08/19/17 13:20 Dose: 0.2 mg Clonidine HCl (Catapres) 0.2 mg PO ONETIME ONE Stop: 08/19/17 15:11 Last Admin: 08/19/17 15:11 Dose: 0.2 mg Dexamethasone (Dexamethasone) Confirm Administered Dose 4 mg .ROUTE .STK-MED ONE Stop: 08/18/17 06:15 Diphenhydramine HCl (Benadryl) 25 mg IVPUSH Q6H PRN PRN Reason: ITCHING Fentanyl (Sublimaze) Confirm Administered Dose 100 mcg .ROUTE .STK-MED ONE Stop: 08/17/17 11:48 Fentanyl Citrate (Fentanyl) Confirm Administered Dose 500 mcg .ROUTE .STK-MED ONE Stop: 08/18/17 06:15 Furosemide (Lasix) 20 mg IVPUSH ONETIME ONE Stop: 08/19/17 17:16 Last Admin: 08/19/17 17:20 Dose: 20 mg Glycopyrrolate (Robinul) Confirm Administered Dose 1 mg .ROUTE .STK-MED ONE Stop: 08/18/17 06:15 Sodium Chloride (Normal Saline) 1,000 mls @ 100 mls/hr IV ASDIRECTED [facility] Last Admin: 08/17/17 10:07 Dose: 100 mls/hr Dextrose/Lactated Ringer's (Dextrose 5%-Lactated Ringers) 1,000 mls @ 100 mls/ hr IV ASDIRECTED [facility] Last Admin: 08/18/17 02:24 Dose: 100 mls/hr Cefoxitin Sodium 2 gm/ Sodium (Chloride) 50 mls @ 100 mls/hr IV ONETIME ONE Stop: 08/18/17 10:29 Last Admin: 08/18/17 09:49 Dose: 100 mls/hr Fentanyl 2,500 mcg/ Sodium (Chloride) 250 mls @ 0 mls/hr EPIDUR TITRATE [facility]ICK; Titrate PRN Reason: Protocol Last Admin: 08/20/17 02:17 Dose: 12 mls/hr, 12 mls/hr Sodium Chloride (Normal Saline) Confirm Administered Dose 10 mls @ as directed .ROUTE .STK-MED ONE Stop: 08/18/17 10:28 Lactated Ringer's (Ringers, Lactated) Confirm Administered Dose 1,000 mls @ as directed .ROUTE .STK-MED ONE Stop: 08/18/17 10:28 Acetaminophen (Ofirmev) Confirm Administered Dose 100 mls @ as directed IV .STK- MED ONE Stop: 08/18/17 10:28 Lactated Ringer's (Ringers, Lactated) Confirm Administered Dose 1,000 mls @ as directed .ROUTE .STK-MED ONE Stop: 08/18/17 11:46 Dextrose/Lactated Ringer's (Dextrose 5%-Lactated Ringers) 1,000 mls @ 175 mls/ hr IV ASDIRECTED [facility] Last Admin: 08/19/17 03:16 Dose: 175 mls/hr Cefoxitin Sodium 2 gm/ Sodium (Chloride) 50 mls @ 100 mls/hr IV Q6H [facility] Stop: 08/19/17 03:59 Last Admin: 08/19/17 03:11 Dose: 100 mls/hr Acetaminophen (Ofirmev) 100 mls @ 400 mls/hr IV Q6H [facility] Stop: 08/19/17 00:14 Last Admin: 08/18/17 23:08 Dose: 400 mls/hr Dextrose/Lactated Ringer's (Dextrose 5%-Lactated Ringers) 1,000 mls @ 80 mls/ hr IV ASDIRECTED [facility] Last Admin: 08/19/17 22:20 Dose: 80 mls/hr Magnesium Sulfate 2 gm/ Premix 50 mls @ 25 mls/hr IV Q4H [facility] Stop: 08/20/17 15:30 Last Admin: 08/20/17 13:40 Dose: 25 mls/hr Lidocaine/Epinephrine (Xylocaine 1% With Epinephrine 1:100,000) Confirm Administered Dose 50 ml .ROUTE .STK-MED ONE Stop: 08/20/17 06:42 Last Admin: 08/20/17 07:30 Dose: 10 ml Meperidine HCl (Demerol) 75 mg IM ASDIRECTED PRN PRN Reason: PAIN Stop: 08/19/17 08:00 Meropenem (Merrem) Confirm Administered Dose 500 mg .ROUTE .STK-MED ONE Stop: 08/18/17 10:51 Last Admin: 08/18/17 12:00 Dose: 500 mg Meropenem (Merrem) Confirm Administered Dose 500 mg .ROUTE .STK-MED ONE Stop: 08/18/17 11:57 Last Admin: 08/18/17 12:04 Dose: 500 mg Meropenem (Merrem) Confirm Administered Dose 500 mg .ROUTE .STK-MED ONE Stop: 08/20/17 06:42 Last Admin: 08/20/17 07:35 Dose: 500 mg Metoprolol Succinate (Toprol Xl) 100 mg PO DAILY [facility] Last Admin: 08/19/17 10:01 Dose: 100 mg Metoprolol Tartrate (Lopressor) 5 mg IVPUSH Q6H [facility] Last Admin: 08/20/17 04:33 Dose: 5 mg Naloxone HCl (Narcan) 0.1 mg IVPUSH Q5M PRN PRN Reason: RESP RATE LESS THAN 6/MINUTE Neostigmine Methylsulfate (Neostigmine) Confirm Administered Dose 5 mg .ROUTE .STK-MED ONE Stop: 08/18/17 06:15 Ondansetron HCl (Zofran) Confirm Administered Dose 4 mg .ROUTE .STK-MED ONE Stop: 08/18/17 06:15 Pantoprazole Sodium (Protonix Iv) 40 mg IV ONETIME ONE Stop: 08/18/17 16:31 Last Admin: 08/18/17 16:05 Dose: 40 mg Propofol (Diprivan 20 Ml) Confirm Administered Dose 200 mg .ROUTE .STK-MED ONE Stop: 08/17/17 11:48 Propofol (Diprivan 20 Ml) Confirm Administered Dose 200 mg .ROUTE .STK-MED ONE Stop: 08/17/17 11:52 Propofol (Diprivan 20 Ml) Confirm Administered Dose 200 mg .ROUTE .STK-MED ONE Stop: 08/18/17 06:15 Propofol (Diprivan 20 Ml) Confirm Administered Dose 200 mg .ROUTE .STK-MED ONE Stop: 08/20/17 06:22 Propranolol HCl (Inderal) 20 mg PO QID [facility] Last Admin: 08/18/17 09:42 Dose: Not Given Rocuronium [place] (Zemuron) Confirm Administered Dose 50 mg .ROUTE .STK-MED ONE Stop: 08/18/17 06:15 Senna/Docusate Sodium (Senna Plus) 2 tab PO BEDTIME [facility] Stop: 08/17/17 21:01 Last Admin: 08/17/17 21:23 Dose: 2 tab Senna/Docusate Sodium (Senna Plus) 2 tab PO DAILY [facility] Last Admin: 08/19/17 08:14 Dose: 2 tab Succinylcholine Chloride (Quelicin) Confirm Administered Dose 200 mg .ROUTE .STK -MED ONE Stop: 08/18/17 06:15 - Exam General: Alert, Oriented Neck: Supple Lungs: Clear to Auscultation, Normal Respiratory Effort Cardiovascular: Regular Rate, Regular Rhythm Peripheral Pulses: 1+: Radial (L), Radial (R) Skin: Warm, Dry, Intact Psy/Mental Status: Alert, Normal Affect, Normal Mood - Problem List Review Problem List Initiated/Reviewed/Updated: Yes - My Orders Last 24 Hours: My Active Orders 08/19/17 21:47 Metoprolol Succinate [Toprol XL] 200 mg PO DAILY 08/20/17 20:00 Doxazosin [Cardura] 4 mg PO Q24H - Plan Plan:: Assessment/Plan: #1. Colon resection: #2. Hypertension: BP still elevated and will be getting Cardura tonight. Mg low is getting replacement
[2017-08-20] MEDS: Dextrose 5%-0.9% NaCl with KCl 1,000 ML IV SCH (20:42)
[2017-08-20] MEDS: Tamsulosin 0.4 MG Cap.ER PO SCH (21:15)
[2017-08-20] MEDS: Doxazosin 4 MG Tab PO SCH (21:15)
[2017-08-21] MEDS: Acetaminophen 500 MG Tab PO SCH ×3 (00:59→13:16)
[2017-08-21] MEDS: Ibuprofen 600 MG Tab PO SCH ×2 (03:41→09:52)
[2017-08-21] MEDS: Metoclopramide 10 MG/2 ML SDV IV SCH ×4 (03:42→22:01)
--- NOTE | 2017-08-21 07:37 | PN ---
DATE OF SERVICE: 08/20/2017 The patient has been afebrile with stable vital signs, a little bit confused overnight, but appears to be clearing this morning. Did have a large bowel movement this morning. The plan will be to proceed with a delayed primary closure of the abdominal incision. We will discontinue Dulcolax oral tablet and epidural catheter and Frances catheter. He was quite hypertensive and tachycardic. We will restart some IV metoprolol and today he will be given higher dose of oral metoprolol. We will discontinue the IV metoprolol. His sodium chloride and magnesium level are quite low. These will be supplemented over the next 24 hours. Armand Marshall MD /[id number]
[2017-08-21] MEDS ORDERED: traMADol 50 MG Tab PO PRN (07:59)
[2017-08-21] MEDS: Ondansetron 4 MG/2 ML SDV IV PRN ×2 (08:04→13:10)
[2017-08-21] MEDS: Metoprolol Succinate 50 MG Tab.ER PO SCH (08:10)
[2017-08-21] MEDS: Pantoprazole 40 MG Tab.CR PO SCH (08:10)
--- NOTE | 2017-08-21 09:24 | OR ---
DATE OF PROCEDURE: 08/18/2017 PREOPERATIVE DIAGNOSIS: Sessile polyps involving right colon and sigmoid colon. POSTOPERATIVE DIAGNOSIS: Sessile polyps involving right colon and sigmoid colon. OPERATIVE PROCEDURES: Exploratory laparotomy with; 1. Right colon resection (79090). 2. Rectosigmoid colon resection with coloproctostomy (35418). 3. Mobilization of omentum into pelvis to displace small bowel in case of postoperative radiation treatment (42169). ANESTHESIA: Epidural plus general. BROKERAGE BRANCH MANAGER: Ignacia Franklin PA-C. INDICATIONS FOR PROCEDURE: A 76-year-old male who was noted to have sessile polyps involving the right and left colon. Initially, it was reported to me that he only had some polyps on the sigmoid colon, which was initially discussed with the patient and family yesterday. Overnight, Dr. Isaac called and remembered that there were also sessile polyps on the right colon, and this was discussed with the patient and today. We will proceed with a separate right colon and sigmoid colon resection. I think this would be preferable, although, there will be 2 anastomoses. A subtotal colectomy would result in a quite large operation, which probably would be unnecessary and result in additional morbidity in terms of his bowel function. Potential risks of the procedure including bleeding, infection, leaks from various GI tract closures, possibility of cardiopulmonary, septic, or hemorrhagic complications leading to were all discussed, and the patient wishes to proceed. DETAILS OF PROCEDURE: The patient was taken to the operating room and placed in a supine position. After an epidural catheter had been placed, epidural anesthetic initiated. After general endotracheal anesthesia was induced, a Frances catheter was inserted, and the abdomen was prepped and draped. A midline incision was eventually extended from 3 fingerbreadths above the umbilicus to the pubis was made and carried down through full-thickness abdominal wall. General exploration was undertaken. As expected, none of the polyps were palpable, otherwise, there was no obvious intraabdominal pathology. Attention was then taken initially to the right colectomy. Peritoneal reflection of the distal small bowel, appendix, cecum, and ascending colon were divided and those structures were mobilized medially. The hepatic flexure attachments were then similarly divided and mobilized upward and medially. A portion of the omentum was dissected off the transverse colon, which was then divided to the middle colic vessels. Initially, the specimen was inspected. There was only a tiny polyp identified and given this, some additional resection was accomplished of the transverse colon to be sure that the area of concern had been removed from the right side. Small bowel was then divided distally with the KEVIN stapler and the mesentery divided with a combination of mesenteric and vascular loads, and the right colon specimen at that point had been delivered from the field. After the second resection of the transverse colon had been accomplished as well, an ileocolic anastomosis was accomplished in a [id number] manner with 2 internal firings of the Endo-KEVIN 60-mm stapler and the common opening was closed transversely with a purple load, the angles anastomosed, and mesenteric defect approximated with some 3-0 Vicryl stitch. Attention was then taken to the sigmoid resection. The area of polyp formation there had been marked with some Cleo ink making the identification of the location of this resection straightforward, followed by proximal and distal to those areas, which included the mid sigmoid colon and the upper rectum. The underlying mesentery was then divided with vascular and mesenteric loads as well. The bowel itself had been divided with purple loads. Using a 28-mm EEA stapler, the anvil was initially placed into the sigmoid colon, which had to be reopened to allow placement of the anvil. It was reclosed with a staple line as well, and the anvil was brought out through the most-dependent portion of the colon. This was a little bit tight, at that point, we did some additional mobilization of the descending colon, it was then accomplished which then allowed the 2 ends of the bowel to come together without tension. The main body of the stapler was then brought rectally up to the apex of the divided rectum. The 2 components of the stapler were united, and the coloproctostomy was thus accomplished. Upon removal of stapler, double donuts of mucosa were noted within it. Coloproctostomy was then reinforced with some 3-0 Vicryl seromuscular stitch and, at that point, no further problems were noted. The anastomosis was fine enough that we did not feel we needed to have a leak test as the entire anastomosis was easily palpable, and we had circumferentially placed 3-0 Vicryl seromuscular stitches. Both anastomoses were then reinforced with fibrin sealant. The abdomen was irrigated with a meropenem-containing saline solution. A Uhng-Torres drain was then placed in the left midabdomen and taken along the left colic gutter and into the pelvis. At that point, the midline fascia was approximated with #2 Vicryl stitch. The skin and subcutaneous tissues were felt to be high risk for wound infection if primary closure was undertaken and, therefore, it was packed open with Iodoform gauze for a planned delayed primary closure in 48 hours. The patient was taken to the recovery room in a satisfactory condition. Physician compliance assistant, Ignacia Franklin, played an essential role in assisting in this case, helping to position the patient, retract structures as needed, as well as suturing and cutting sutures when indicated. Her presence improved the patient's safety and decreased the operative time. Armand Marshall MD /[id number]
--- NOTE | 2017-08-21 09:34 | PN ---
DATE OF SERVICE: 08/21/2017 SUBJECTIVE: Ron is reporting more pain that is not controlled with ibuprofen and the Motrin. Vital signs have been stable. Blood pressure has remained good, the highest has been 159/88. He has been up ambulating. Labs this morning reveals a sodium of 122, calcium 7.9, and phosphorus is 2. OBJECTIVE: GENERAL: Ron is a 76-year-old male. He is alert and orientated. Color pale. VITAL SIGNS: TPR 97.3, 75, 18. Blood pressure 138/74. HEENT: Negative. NECK: Supple. HEART: Regular rate and rhythm. LUNGS: Clear. ABDOMEN: Dressing dry and intact. Abdominal binder is on. EXTREMITIES: Without peripheral edema. SCDs are on. ASSESSMENT: 1. Delayed primary closure, 08/20/2017. 2. Esophagogastroduodenoscopy and colonoscopy with biopsies 08/17/2017, Perez Isaac MD. 3. Sigmoid colon resection, Armand Marshall MD, 08/18/2017. PLAN: 1. K-Phos 60 millimoles IV today. 2. Discontinue telemetry. 3. May shower. Leave Aquacel dressing on. 4. Check CBC, CMP, and phosphorus. 5. Dr. Isaac was called per Armand Marshall MD in regard to hyponatremia and he will be up to see the patient in regard to this. 6. We will prescribe tramadol 50 mg q.4 hours p.r.n. breakthrough pain. 7. We will evaluate p.r.n. or in a.m. Ignacia Franklin PA-C /[id number]
--- NOTE | 2017-08-21 09:53 | PCM.PN ---
- General Info Date of Service: 08/21/17 Subjective Update: He states he feels weak today and has abd. pain worse when he eats. - Review of Systems General: Reports: Weakness HEENT: Reports: No Symptoms Pulmonary: Reports: No Symptoms Cardiovascular: Reports: No Symptoms Gastrointestinal: Reports: Abdominal Pain Genitourinary: Reports: No Symptoms Musculoskeletal: Reports: No Symptoms Skin: Reports: No Symptoms Neurological: Reports: No Symptoms Psychiatric: Reports: No Symptoms - Patient Data Vitals - Most Recent: Last Vital Signs Temp 97.3 F 08/21/17 07:00 Pulse 75 08/21/17 08:10 Resp 18 08/21/17 07:00 BP 138/74 08/21/17 08:10 Pulse Ox 95 08/21/17 07:00 Weight - Most Recent: 165 lb I&O - Last 24 Hours: Intake & Output 08/20/17 08/21/17 08/21/17 22:59 06:59 14:59 Intake Total 450 1332 Output Total 10 Balance 450 1322 Lab Results Last 24 Hours: Laboratory Results - last 24 hr 08/21/17 Range/Units 03:30 Sodium 122 L (140-148) mmol/L Potassium 3.6 (3.6-5.2) mmol/L Chloride 93 L (100-108) mmol/L Carbon Dioxide 21 (21-32) mmol/L Anion Gap 11.6 (5.0-14.0) mmol/L BUN 18 (7-18) mg/dL Creatinine 1.2 (0.8-1.3) mg/dL Est Cr Clr Drug Dosing 54.57 mL/min Estimated GFR (MDRD) 59 L (>60) Glucose 130 H (74-106) mg/dL Calcium 7.9 L (8.5-10.1) mg/dL Phosphorus 2.0 L (2.5-4.9) mg/dL NT-Pro-B Natriuret Pep 681 H (5-450) pg/mL Med Orders - Current: Current Medications Acetaminophen (Tylenol Extra Strength) 1,000 mg PO Q6H [facility] Last Admin: 08/21/17 05:45 Dose: 1,000 mg Doxazosin Mesylate (Cardura) 4 mg PO Q24H [facility] Last Admin: 08/20/17 21:15 Dose: 4 mg Potassium Chloride/Dextrose/Sod Cl (D5 Ns With 20 Meq Kcl) 1,000 mls @ 80 mls/ hr IV ASDIRECTED [facility] Last Admin: 08/20/17 20:42 Dose: 80 mls/hr Magnesium Sulfate 2 gm/ Sodium (Chloride) 54 mls @ 27 mls/hr IV Q4H [facility] Stop: 08/22/17 07:59 Last Admin: 08/21/17 05:45 Dose: 27 mls/hr Potassium Phosphate 20 mmole/ (Sodium Chloride) 256.6667 mls @ 86 mls/hr IV Q3H [facility] Stop: 08/21/17 18:59 Ibuprofen (Motrin) 600 mg PO Q6H [facility] Last Admin: 08/21/17 03:41 Dose: 600 mg Lorazepam (Ativan) 0.5 mg IVPUSH Q2H PRN PRN Reason: Anxiety Last Admin: 08/19/17 22:15 Dose: 0.5 mg Metoclopramide HCl (Reglan) 10 mg IV Q6H [facility] Last Admin: 08/21/17 03:42 Dose: 10 mg Metoprolol Succinate (Toprol Xl) 200 mg PO DAILY [facility] Last Admin: 08/21/17 08:10 Dose: 200 mg Miscellaneous Information (Remove Patch) 1 ea TRDERM ONETIME ONE Stop: 08/21/17 14:01 Ondansetron HCl (Zofran) 4 mg IV Q4H PRN PRN Reason: N/V Last Admin: 08/21/17 08:04 Dose: 4 mg Pantoprazole Sodium (Protonix) 40 mg PO ACBREAKFAST [facility] Last Admin: 08/21/17 08:10 Dose: 40 mg Scopolamine (Transderm-Scop) 1.5 mg TOP Q72H [facility] Stop: 08/21/17 15:45 Last Admin: 08/18/17 15:22 Dose: 1.5 mg Tamsulosin HCl (Flomax) 0.4 mg PO BEDTIME [facility] Last Admin: 08/20/17 21:15 Dose: 0.4 mg Tramadol HCl (Ultram) 50 mg PO Q4H PRN PRN Reason: Pain Last Admin: 08/21/17 08:04 Dose: 50 mg Discontinued Medications Alvimopan (Entereg) 12 mg PO ONETIME ONE Stop: 08/18/17 08:01 Last Admin: 08/18/17 07:26 Dose: 12 mg Alvimopan (Entereg) 12 mg PO BID [facility] Last Admin: 08/19/17 22:01 Dose: 12 mg Bisacodyl (Dulcolax) 10 mg PO BID [facility] Last Admin: 08/19/17 22:00 Dose: 10 mg Bupivacaine HCl (Marcaine 0.5%) Confirm Administered Dose 50 ml .ROUTE .STK-MED ONE Stop: 08/20/17 06:42 Last Admin: 08/20/17 07:30 Dose: 10 ml Clonidine HCl (Catapres) 0.1 mg PO ONETIME ONE Stop: 08/17/17 19:20 Last Admin: 08/17/17 19:32 Dose: 0.1 mg Clonidine HCl (Catapres) 0.1 mg PO ONETIME ONE Stop: 08/17/17 23:31 Last Admin: 08/17/17 23:21 Dose: Not Given Clonidine HCl (Catapres) 0.2 mg PO ONETIME ONE Stop: 08/19/17 13:16 Last Admin: 08/19/17 13:20 Dose: 0.2 mg Clonidine HCl (Catapres) 0.2 mg PO ONETIME ONE Stop: 08/19/17 15:11 Last Admin: 08/19/17 15:11 Dose: 0.2 mg Dexamethasone (Dexamethasone) Confirm Administered Dose 4 mg .ROUTE .STK-MED ONE Stop: 08/18/17 06:15 Diphenhydramine HCl (Benadryl) 25 mg IVPUSH Q6H PRN PRN Reason: ITCHING Fentanyl (Sublimaze) Confirm Administered Dose 100 mcg .ROUTE .STK-MED ONE Stop: 08/17/17 11:48 Fentanyl Citrate (Fentanyl) Confirm Administered Dose 500 mcg .ROUTE .STK-MED ONE Stop: 08/18/17 06:15 Furosemide (Lasix) 20 mg IVPUSH ONETIME ONE Stop: 08/19/17 17:16 Last Admin: 08/19/17 17:20 Dose: 20 mg Glycopyrrolate (Robinul) Confirm Administered Dose 1 mg .ROUTE .STK-MED ONE Stop: 08/18/17 06:15 Sodium Chloride (Normal Saline) 1,000 mls @ 100 mls/hr IV ASDIRECTED [facility] Last Admin: 08/17/17 10:07 Dose: 100 mls/hr Dextrose/Lactated Ringer's (Dextrose 5%-Lactated Ringers) 1,000 mls @ 100 mls/ hr IV ASDIRECTED [facility] Last Admin: 08/18/17 02:24 Dose: 100 mls/hr Cefoxitin Sodium 2 gm/ Sodium (Chloride) 50 mls @ 100 mls/hr IV ONETIME ONE Stop: 08/18/17 10:29 Last Admin: 08/18/17 09:49 Dose: 100 mls/hr Fentanyl 2,500 mcg/ Sodium (Chloride) 250 mls @ 0 mls/hr EPIDUR TITRATE [facility]; Titrate PRN Reason: Protocol Last Admin: 08/20/17 02:17 Dose: 12 mls/hr, 12 mls/hr Sodium Chloride (Normal Saline) Confirm Administered Dose 10 mls @ as directed .ROUTE .STK-MED ONE Stop: 08/18/17 10:28 Lactated Ringer's (Ringers, Lactated) Confirm Administered Dose 1,000 mls @ as directed .ROUTE .STK-MED ONE Stop: 08/18/17 10:28 Acetaminophen (Ofirmev) Confirm Administered Dose 100 mls @ as directed IV .STK- MED ONE Stop: 08/18/17 10:28 Lactated Ringer's (Ringers, Lactated) Confirm Administered Dose 1,000 mls @ as directed .ROUTE .STK-MED ONE Stop: 08/18/17 11:46 Dextrose/Lactated Ringer's (Dextrose 5%-Lactated Ringers) 1,000 mls @ 175 mls/ hr IV ASDIRECTED [facility] Last Admin: 08/19/17 03:16 Dose: 175 mls/hr Cefoxitin Sodium 2 gm/ Sodium (Chloride) 50 mls @ 100 mls/hr IV Q6H [facility] Stop: 08/19/17 03:59 Last Admin: 08/19/17 03:11 Dose: 100 mls/hr Acetaminophen (Ofirmev) 100 mls @ 400 mls/hr IV Q6H [facility] Stop: 08/19/17 00:14 Last Admin: 08/18/17 23:08 Dose: 400 mls/hr Dextrose/Lactated Ringer's (Dextrose 5%-Lactated Ringers) 1,000 mls @ 80 mls/ hr IV ASDIRECTED [facility] Last Admin: 08/19/17 22:20 Dose: 80 mls/hr Magnesium Sulfate 2 gm/ Premix 50 mls @ 25 mls/hr IV Q4H [facility] Stop: 08/20/17 15:30 Last Admin: 08/20/17 13:40 Dose: 25 mls/hr Lidocaine/Epinephrine (Xylocaine 1% With Epinephrine 1:100,000) Confirm Administered Dose 50 ml .ROUTE .STK-MED ONE Stop: 08/20/17 06:42 Last Admin: 08/20/17 07:30 Dose: 10 ml Meperidine HCl (Demerol) 75 mg IM ASDIRECTED PRN PRN Reason: PAIN Stop: 08/19/17 08:00 Meropenem (Merrem) Confirm Administered Dose 500 mg .ROUTE .STK-MED ONE Stop: 08/18/17 10:51 Last Admin: 08/18/17 12:00 Dose: 500 mg Meropenem (Merrem) Confirm Administered Dose 500 mg .ROUTE .STK-MED ONE Stop: 08/18/17 11:57 Last Admin: 08/18/17 12:04 Dose: 500 mg Meropenem (Merrem) Confirm Administered Dose 500 mg .ROUTE .STK-MED ONE Stop: 08/20/17 06:42 Last Admin: 08/20/17 07:35 Dose: 500 mg Metoprolol Succinate (Toprol Xl) 100 mg PO DAILY [facility] Last Admin: 08/19/17 10:01 Dose: 100 mg Metoprolol Tartrate (Lopressor) 5 mg IVPUSH Q6H [facility] Last Admin: 08/20/17 04:33 Dose: 5 mg Naloxone HCl (Narcan) 0.1 mg IVPUSH Q5M PRN PRN Reason: RESP RATE LESS THAN 6/MINUTE Neostigmine Methylsulfate (Neostigmine) Confirm Administered Dose 5 mg .ROUTE .STK-MED ONE Stop: 08/18/17 06:15 Ondansetron HCl (Zofran) Confirm Administered Dose 4 mg .ROUTE .STK-MED ONE Stop: 08/18/17 06:15 Pantoprazole Sodium (Protonix Iv) 40 mg IV ONETIME ONE Stop: 08/18/17 16:31 Last Admin: 08/18/17 16:05 Dose: 40 mg Propofol (Diprivan 20 Ml) Confirm Administered Dose 200 mg .ROUTE .STK-MED ONE Stop: 08/17/17 11:48 Propofol (Diprivan 20 Ml) Confirm Administered Dose 200 mg .ROUTE .STK-MED ONE Stop: 08/17/17 11:52 Propofol (Diprivan 20 Ml) Confirm Administered Dose 200 mg .ROUTE .STK-MED ONE Stop: 08/18/17 06:15 Propofol (Diprivan 20 Ml) Confirm Administered Dose 200 mg .ROUTE .STK-MED ONE Stop: 08/20/17 06:22 Propranolol HCl (Inderal) 20 mg PO QID [facility] Last Admin: 08/18/17 09:42 Dose: Not Given Rocuronium Alexander (Zemuron) Confirm Administered Dose 50 mg .ROUTE .STK-MED ONE Stop: 08/18/17 06:15 Senna/Docusate Sodium (Senna Plus) 2 tab PO BEDTIME [facility] Stop: 08/17/17 21:01 Last Admin: 08/17/17 21:23 Dose: 2 tab Senna/Docusate Sodium (Senna Plus) 2 tab PO DAILY [facility] Last Admin: 08/19/17 08:14 Dose: 2 tab Succinylcholine Chloride (Quelicin) Confirm Administered Dose 200 mg .ROUTE .STK -MED ONE Stop: 08/18/17 06:15 - Exam General: Alert, Oriented HEENT: Pupils Equal, Pupils Reactive, EOMI, Mucous Membr. Moist/Globe Lungs: Clear to Auscultation, Normal Respiratory Effort Cardiovascular: Regular Rate, Regular Rhythm - Problem List Review Problem List Initiated/Reviewed/Updated: Yes - My Orders Last 24 Hours: My Active Orders 08/20/17 20:00 Doxazosin [Cardura] 4 mg PO Q24H - Plan Plan:: Assessment/Plan: #1. Colon resection: #2. Hypertension: BP still elevated and will be getting Cardura tonight. Mg low is getting replacement. #3. Hyponatremia: Will treat the hypertonic saline and recheck Na in the morning.
[2017-08-21] MEDS ORDERED: Sodium Chloride 3% 500 ML IV ONE (10:00)
[2017-08-21] MEDS ORDERED: Potassium Phosphates 30 MMOLE in Sodium Chloride 0.9% 250 ML IV SCH (10:00)
[2017-08-21] MEDS: Potassium Phosphates 20 MMOLE in Sodium Chloride 0.9% 250 ML IV SCH ×3 (10:06→16:20)
--- NOTE | 2017-08-21 10:33 | OR ---
DATE OF PROCEDURE: 08/20/2017 PREOPERATIVE DIAGNOSIS: Open abdominal incision. POSTOPERATIVE DIAGNOSIS: Open abdominal incision. PROCEDURE: Delayed primary closure of open abdominal incision. ANESTHESIA: Local plus IV sedation. INDICATION FOR PROCEDURE: The patient is status post right colectomy and sigmoid colon resection 48 hours ago. He is undergoing delayed primary closure. The wound is left open originally, as it was felt that he would be high risk for wound infection if primary closure was undertaken. Potential risks including bleeding and infection were reviewed, and the patient wishes to proceed. DETAILS OF PROCEDURE: The patient was taken to the operating room, placed in a supine position, sitting up somewhat to minimize aspiration risk. IV sedation was administered, after which the operative dressing was taken down, incision inspected and found to be clean. It was then prepped and draped, anesthetized with 1% lidocaine mixed with Marcaine, then closed off with some deep sutures of 3 and 4-0 Vicryl stitch and the skin with richmond. A 10-Czech round Hung-Torres drain had been placed through stab wound beneath the incision and the skin closed with 4-0 Vicryl stitch. The patient was taken to the recovery room in satisfactory condition. There were no evident complications. Armand Marshall MD /[id number]
[2017-08-21] MEDS: Dextrose 5%-0.9% NaCl with KCl 1,000 ML IV SCH (15:35)
[2017-08-21] MEDS: Acetaminophen 1,000 MG in Premix Bag 1 BAG IV SCH ×2 (15:36→22:00)
[2017-08-21] MEDS: Tamsulosin 0.4 MG Cap.ER PO SCH (21:59)
[2017-08-21] MEDS: Doxazosin 4 MG Tab PO SCH (21:59)
[2017-08-22] MEDS ORDERED: Iopamidol 612 MG/ML 150 ML Bottle IV SCH (01:30)
[2017-08-22] MEDS: Acetaminophen 1,000 MG in Premix Bag 1 BAG IV SCH ×3 (02:04→15:13)
[2017-08-22] MEDS: Dextrose 5%-0.9% NaCl with KCl 1,000 ML IV SCH ×2 (04:34→15:13)
[2017-08-22] MEDS: Metoclopramide 10 MG/2 ML SDV IV SCH ×4 (05:20→21:15)
[2017-08-22] MEDS: Pantoprazole 40 MG Tab.CR PO SCH (08:08)
[2017-08-22] MEDS: Metoprolol Succinate 50 MG Tab.ER PO SCH (08:09)
[2017-08-22] MEDS: Phenol/Sodium Phenolate Mouthwash 180 ML Bottle PO PRN ×2 (10:23→15:18)
[2017-08-22] MEDS: Dimethicone 20%/Zinc Oxide 25% 56 GM Spray Bottle TOP PRN ×2 (10:28→15:18)
--- NOTE | 2017-08-22 20:42 | PN ---
DATE OF SERVICE: 08/22/2017 SUBJECTIVE: Ron had an emesis yesterday, a little bit earlier in the afternoon, then he had another emesis. NG was placed. Since his NG has been placed, he has had a total out of 3450. A CT scan was obtained as well as an abdominal flat and upright, which was suggestive of an adynamic ileus, but cannot rule out a small bowel obstruction. He is having bowel movements, voiding. Pain is well controlled and he states only with movement. Sodium is up to 129. Hemoglobin is 10.8. He is alert and orientated. OBJECTIVE: GENERAL: Ron Hong is a pleasant 76-year-old male, alert, and orientated. VITAL SIGNS: TPR is 98.6, 69, 18, and blood pressure 141/84. HEENT: Negative. NECK: Supple. HEART: Regular rate and rhythm. LUNGS: Clear. ABDOMEN: Soft, mildly distended. NG in place. EXTREMITIES: Without peripheral edema, and SCDs are on. ASSESSMENT: 1. Postoperative ileus. 2. Delayed primary closure. 3. Esophagogastroduodenoscopy and colonoscopy biopsies on 08/17/2017, Perez Isaac MD. 4. Sigmoid colon resection, Armand Marshall MD, on 08/18/2017. PLAN: 1. Dr. Marshall was available to be consulted. Continue NG. 2. Abdominal x-ray flat and upright in a.m. Bladder scan after next void. Accurate intake and output. 3. Check urine sodium. 4. Check CMP, magnesium, phosphate in a.m. 5. Good pulmonary toilet. 6. Follow up p.r.n. or in a.m. Ignacia Franklin PA-C /[id number]
--- NOTE | 2017-08-22 20:43 | PCM.PN ---
- General Info Date of Service: 08/22/17 Functional Status: Reports: Pain Controlled - Review of Systems Pulmonary: Reports: No Symptoms Cardiovascular: Reports: No Symptoms Gastrointestinal: Reports: Abdominal Pain Musculoskeletal: Reports: No Symptoms Neurological: Reports: No Symptoms Psychiatric: Reports: No Symptoms - Patient Data Vitals - Most Recent: Last Vital Signs Temp 98.6 F 08/22/17 15:00 Pulse 69 08/22/17 15:00 Resp 18 08/22/17 15:00 BP 141/84 H 08/22/17 15:00 Pulse Ox 95 08/22/17 15:00 Weight - Most Recent: 165 lb I&O - Last 24 Hours: Intake & Output 08/22/17 08/22/17 08/22/17 06:59 14:59 22:59 Intake Total 7173 897 4072 Output Total 851 600 955 Balance 294 -500 260 Lab Results Last 24 Hours: Laboratory Results - last 24 hr 08/22/17 08/22/17 08/22/17 Range/Units 05:27 05:27 08:00 WBC 2.4 L (4.5-11.0) K/uL RBC 3.47 L (4.30-5.90) M/uL Hgb 10.8 L D (12.0-15.0) g/dL Hct 31.2 L (40.0-54.0) % MCV 90 (80-98) fL MCH 31 (27-31) pg MCHC 35 (32-36) % Plt Count 149 L (150-400) K/uL Sodium 129 L (140-148) mmol/L Potassium 3.7 (3.6-5.2) mmol/L Chloride 100 (100-108) mmol/L Carbon Dioxide 19 L (21-32) mmol/L Anion Gap 13.7 (5.0-14.0) mmol/L BUN 17 (7-18) mg/dL Creatinine 1.4 H (0.8-1.3) mg/dL Est Cr Clr Drug Dosing 46.78 mL/min Estimated GFR (MDRD) 49 L (>60) Glucose 110 H (74-106) mg/dL Calcium 7.4 L (8.5-10.1) mg/dL Phosphorus 3.7 (2.5-4.9) mg/dL Total Bilirubin 0.3 D (0.2-1.0) mg/dL AST 31 (15-37) U/L ALT 27 (12-78) U/L Alkaline Phosphatase 31 L (46-116) U/L Total Protein 5.0 L (6.4-8.2) g/dL Albumin 2.1 L (3.4-5.0) g/dL Globulin 2.9 (2.3-3.5) g/dL Albumin/Globulin Ratio 0.7 L (1.2-2.2) Ur Random Sodium 15 L (20-110) mmol/L Cruz Results Last 24 Hours: Microbiology 08/22/17 05:42 Clostridium difficile (PCR) - Final Stool / Feces NEGATIVE CDIFF TOXIN Med Orders - Current: Current Medications Dimethicone/Zinc Oxide (Rash Relief-Zinc Oxide [place]) 0 gm TOP ASDIRECTED PRN PRN Reason: RASH Last Admin: 08/22/17 15:18 Dose: 1 spray Doxazosin Mesylate (Cardura) 4 mg PO Q24H [facility] Last Admin: 08/21/17 21:59 Dose: 4 mg Hydromorphone HCl (Dilaudid) 1 mg IVPUSH Q2H PRN PRN Reason: Pain Potassium Chloride/Dextrose/Sod Cl (D5 Ns With 20 Meq Kcl) 1,000 mls @ 100 mls/ hr IV ASDIRECTED [facility] Last Admin: 08/22/17 15:13 Dose: 100 mls/hr Iopamidol (Isovue-300 (61%)) 112 ml IV . DIRECTED [facility] Stop: 08/22/17 23:00 Lorazepam (Ativan) 0.5 mg IVPUSH Q2H PRN PRN Reason: Anxiety Last Admin: 08/19/17 22:15 Dose: 0.5 mg Metoclopramide HCl (Reglan) 10 mg IV Q6H [facility] Last Admin: 08/22/17 16:42 Dose: 10 mg Metoprolol Succinate (Toprol Xl) 200 mg PO DAILY [facility] Last Admin: 08/22/17 08:09 Dose: 200 mg Ondansetron HCl (Zofran) 4 mg IV Q4H PRN PRN Reason: N/V Last Admin: 08/21/17 13:10 Dose: 4 mg Pantoprazole Sodium (Protonix) 40 mg PO ACBREAKFAST [facility] Last Admin: 08/22/17 08:08 Dose: 40 mg Phenol (Phenaseptic Liquid) 0 ml PO Q3H PRN PRN Reason: Pain (mild 1-3) Last Admin: 08/22/17 15:18 Dose: 1 spray Sodium Chloride (Saline Flush) 10 ml FLUSH ONETIME PRN PRN Reason: PER RADIOLOGY PROTOCOL Tamsulosin HCl (Flomax) 0.4 mg PO BEDTIME [facility] Last Admin: 08/21/17 21:59 Dose: 0.4 mg Discontinued Medications Acetaminophen (Tylenol Extra Strength) 1,000 mg PO Q6H [facility] Last Admin: 08/21/17 13:16 Dose: Not Given Alvimopan (Entereg) 12 mg PO ONETIME ONE Stop: 08/18/17 08:01 Last Admin: 08/18/17 07:26 Dose: 12 mg Alvimopan (Entereg) 12 mg PO BID [facility] Last Admin: 08/19/17 22:01 Dose: 12 mg Bisacodyl (Dulcolax) 10 mg PO BID [facility] Last Admin: 08/19/17 22:00 Dose: 10 mg Bupivacaine HCl (Marcaine 0.5%) Confirm Administered Dose 50 ml .ROUTE .STK-MED ONE Stop: 08/20/17 06:42 Last Admin: 08/20/17 07:30 Dose: 10 ml Clonidine HCl (Catapres) 0.1 mg PO ONETIME ONE Stop: 08/17/17 19:20 Last Admin: 08/17/17 19:32 Dose: 0.1 mg Clonidine HCl (Catapres) 0.1 mg PO ONETIME ONE Stop: 08/17/17 23:31 Last Admin: 08/17/17 23:21 Dose: Not Given Clonidine HCl (Catapres) 0.2 mg PO ONETIME ONE Stop: 08/19/17 13:16 Last Admin: 08/19/17 13:20 Dose: 0.2 mg Clonidine HCl (Catapres) 0.2 mg PO ONETIME ONE Stop: 08/19/17 15:11 Last Admin: 08/19/17 15:11 Dose: 0.2 mg Dexamethasone (Dexamethasone) Confirm Administered Dose 4 mg .ROUTE .STK-MED ONE Stop: 08/18/17 06:15 Diphenhydramine HCl (Benadryl) 25 mg IVPUSH Q6H PRN PRN Reason: ITCHING Fentanyl (Sublimaze) Confirm Administered Dose 100 mcg .ROUTE .STK-MED ONE Stop: 08/17/17 11:48 Fentanyl Citrate (Fentanyl) Confirm Administered Dose 500 mcg .ROUTE .STK-MED ONE Stop: 08/18/17 06:15 Furosemide (Lasix) 20 mg IVPUSH ONETIME ONE Stop: 08/19/17 17:16 Last Admin: 08/19/17 17:20 Dose: 20 mg Glycopyrrolate (Robinul) Confirm Administered Dose 1 mg .ROUTE .ST-MED ONE Stop: 08/18/17 06:15 Sodium Chloride (Normal Saline) 1,000 mls @ 100 mls/hr IV ASDIRECTED [place] Last Admin: 08/17/17 10:07 Dose: 100 mls/hr Dextrose/Lactated Ringer's (Dextrose 5%-Lactated Ringers) 1,000 mls @ 100 mls/ hr IV ASDIRECTED [facility] Last Admin: 08/18/17 02:24 Dose: 100 mls/hr Cefoxitin Sodium 2 gm/ Sodium (Chloride) 50 mls @ 100 mls/hr IV ONETIME ONE Stop: 08/18/17 10:29 Last Admin: 08/18/17 09:49 Dose: 100 mls/hr Fentanyl 2,500 mcg/ Sodium (Chloride) 250 mls @ 0 mls/hr EPIDUR TITRATE CEDRICK; Titrate PRN Reason: Protocol Last Admin: 08/20/17 02:17 Dose: 12 mls/hr, 12 mls/hr Sodium Chloride (Normal Saline) Confirm Administered Dose 10 mls @ as directed .ROUTE .[facility]-MED ONE Stop: 08/18/17 10:28 Lactated Ringer's (Ringers, Lactated) Confirm Administered Dose 1,000 mls @ as directed .ROUTE .STK-MED ONE Stop: 08/18/17 10:28 Acetaminophen (Ofirmev) Confirm Administered Dose 100 mls @ as directed IV .STK- MED ONE Stop: 08/18/17 10:28 Lactated Ringer's (Ringers, Lactated) Confirm Administered Dose 1,000 mls @ as directed .ROUTE .ST-MED ONE Stop: 08/18/17 11:46 Dextrose/Lactated Ringer's (Dextrose 5%-Lactated Ringers) 1,000 mls @ 175 mls/ hr IV ASDIRECTED [facility] Last Admin: 08/19/17 03:16 Dose: 175 mls/hr Cefoxitin Sodium 2 gm/ Sodium (Chloride) 50 mls @ 100 mls/hr IV Q6H [facility] Stop: 08/19/17 03:59 Last Admin: 08/19/17 03:11 Dose: 100 mls/hr Acetaminophen (Ofirmev) 100 mls @ 400 mls/hr IV Q6H [facility] Stop: 08/19/17 00:14 Last Admin: 08/18/17 23:08 Dose: 400 mls/hr Dextrose/Lactated Ringer's (Dextrose 5%-Lactated Ringers) 1,000 mls @ 80 mls/ hr IV ASDIRECTED [facility] Last Admin: 08/19/17 22:20 Dose: 80 mls/hr Potassium Chloride/Dextrose/Sod Cl (D5 Ns With 20 Meq Kcl) 1,000 mls @ 80 mls/ hr IV ASDIRECTED [facility] Last Admin: 08/21/17 15:35 Dose: 80 mls/hr Magnesium Sulfate 2 gm/ Premix 50 mls @ 25 mls/hr IV Q4H [facility] Stop: 08/20/17 15:30 Last Admin: 08/20/17 13:40 Dose: 25 mls/hr Magnesium Sulfate 2 gm/ Sodium (Chloride) 54 mls @ 27 mls/hr IV Q4H [facility] Stop: 08/22/17 07:59 Last Admin: 08/22/17 05:43 Dose: 27 mls/hr Potassium Phosphate 20 mmole/ (Sodium Chloride) 256.6667 mls @ 86 mls/hr IV Q3H [facility] Stop: 08/21/17 18:59 Last Admin: 08/21/17 16:20 Dose: 86 mls/hr Sodium Chloride (Sodium Chloride 3%) 500 mls @ 30 mls/hr IV ONETIME ONE Stop: 08/22/17 02:39 Last Admin: 08/21/17 15:34 Dose: Not Given Acetaminophen 1,000 mg/ Premix 100 mls @ 400 mls/hr IV Q6H [facility] Stop: 08/22/17 15:01 Last Admin: 08/22/17 15:13 Dose: 400 mls/hr Sodium Chloride (Normal Saline) 74 mls @ 3 mls/sec IV ONETIME ONE Stop: 08/22/17 01:29 Last Admin: 08/22/17 07:46 Dose: Not Given Ibuprofen (Motrin) 600 mg PO Q6H [facility] Last Admin: 08/21/17 09:52 Dose: 600 mg Lidocaine/Epinephrine (Xylocaine 1% With Epinephrine 1:100,000) Confirm Administered Dose 50 ml .ROUTE .STK-MED ONE Stop: 08/20/17 06:42 Last Admin: 08/20/17 07:30 Dose: 10 ml Meperidine HCl (Demerol) 75 mg IM ASDIRECTED PRN PRN Reason: PAIN Stop: 08/19/17 08:00 Meropenem (Merrem) Confirm Administered Dose 500 mg .ROUTE .STK-MED ONE Stop: 08/18/17 10:51 Last Admin: 08/18/17 12:00 Dose: 500 mg Meropenem (Merrem) Confirm Administered Dose 500 mg .ROUTE .STK-MED ONE Stop: 08/18/17 11:57 Last Admin: 08/18/17 12:04 Dose: 500 mg Meropenem (Merrem) Confirm Administered Dose 500 mg .ROUTE .STK-MED ONE Stop: 08/20/17 06:42 Last Admin: 08/20/17 07:35 Dose: 500 mg Metoprolol Succinate (Toprol Xl) 100 mg PO DAILY [facility] Last Admin: 08/19/17 10:01 Dose: 100 mg Metoprolol Tartrate (Lopressor) 5 mg IVPUSH Q6H [facility] Last Admin: 08/20/17 04:33 Dose: 5 mg Miscellaneous Information (Remove Patch) 1 ea TRDERM ONETIME ONE Stop: 08/21/17 14:01 Last Admin: 08/21/17 15:36 Dose: 1 ea Naloxone HCl (Narcan) 0.1 mg IVPUSH Q5M PRN PRN Reason: RESP RATE LESS THAN 6/MINUTE Neostigmine Methylsulfate (Neostigmine) Confirm Administered Dose 5 mg .ROUTE .STK-MED ONE Stop: 08/18/17 06:15 Ondansetron HCl (Zofran) Confirm Administered Dose 4 mg .ROUTE .STK-MED ONE Stop: 08/18/17 06:15 Pantoprazole Sodium (Protonix Iv) 40 mg IV ONETIME ONE Stop: 08/18/17 16:31 Last Admin: 08/18/17 16:05 Dose: 40 mg Propofol (Diprivan 20 Ml) Confirm Administered Dose 200 mg .ROUTE .STK-MED ONE Stop: 08/17/17 11:48 Propofol (Diprivan 20 Ml) Confirm Administered Dose 200 mg .ROUTE .STK-MED ONE Stop: 08/17/17 11:52 Propofol (Diprivan 20 Ml) Confirm Administered Dose 200 mg .ROUTE .STK-MED ONE Stop: 08/18/17 06:15 Propofol (Diprivan 20 Ml) Confirm Administered Dose 200 mg .ROUTE .STK-MED ONE Stop: 08/20/17 06:22 Propranolol HCl (Inderal) 20 mg PO QID [facility] Last Admin: 08/18/17 09:42 Dose: Not Given Rocuronium [place] (Zemuron) Confirm Administered Dose 50 mg .ROUTE .STK-MED ONE Stop: 08/18/17 06:15 Scopolamine (Transderm-Scop) 1.5 mg TOP Q72H [facility] Stop: 08/21/17 15:45 Last Admin: 08/18/17 15:22 Dose: 1.5 mg Senna/Docusate Sodium (Senna Plus) 2 tab PO BEDTIME [facility] Stop: 08/17/17 21:01 Last Admin: 08/17/17 21:23 Dose: 2 tab Senna/Docusate Sodium (Senna Plus) 2 tab PO DAILY [facility] Last Admin: 08/19/17 08:14 Dose: 2 tab Succinylcholine Chloride (Quelicin) Confirm Administered Dose 200 mg .ROUTE .STK -MED ONE Stop: 08/18/17 06:15 Tramadol HCl (Ultram) 50 mg PO Q4H PRN PRN Reason: Pain Last Admin: 08/21/17 08:04 Dose: 50 mg - Exam HEENT: Pupils Equal, Pupils Reactive, EOMI, Mucous Membr. Moist/[place] Neck: Supple Lungs: Clear to Auscultation, Normal Respiratory Effort Cardiovascular: Regular Rate, Regular Rhythm Extremities: Normal Inspection, Normal Range of Motion, Non-Tender, No Pedal Edema, Normal Capillary Refill Peripheral Pulses: 1+: Radial (L), Radial (R) - Problem List Review Problem List Initiated/Reviewed/Updated: Yes - Plan Plan:: Assessment/Plan: #1. Colon resection: #2. Hypertension: BP good control will continue with the same medication #3. Hyponatremia: Improving..
[2017-08-22] MEDS: Doxazosin 4 MG Tab PO SCH (21:14)
[2017-08-22] MEDS: Tamsulosin 0.4 MG Cap.ER PO SCH (21:14)
[2017-08-23] MEDS: Dextrose 5%-0.9% NaCl with KCl 1,000 ML IV SCH ×3 (01:37→20:19)
[2017-08-23] MEDS: HYDROmorphone 1 MG/ML Syringe IVPUSH PRN ×2 (03:30→11:20)
[2017-08-23] MEDS: Metoclopramide 10 MG/2 ML SDV IV SCH ×4 (03:32→21:02)
[2017-08-23] MEDS ORDERED: Benzocaine/Cetylpyridinium/Menthol Lozenge MUCMEM PRN (03:38)
[2017-08-23] MEDS: Metoprolol Succinate 50 MG Tab.ER PO SCH (08:37)
[2017-08-23] MEDS: Pantoprazole 40 MG Tab.CR PO SCH (08:37)
[2017-08-23] MEDS: Acetaminophen 325 MG Tab PO PRN ×2 (08:37→20:14)
--- NOTE | 2017-08-23 09:58 | PN ---
DATE OF SERVICE: 08/23/2017 SUBJECTIVE: Ron has had his NG clamped for his oral pain medications and he has tolerated it well. He is feeling better. Pain is controlled. Vital signs, he has a temperature max of 100.2. Otherwise, it has been 99.7, 99.5. Urinary output 2000. NG put out 850 and that includes ice chips. LABORATORY DATA: Labs this morning, hemoglobin 10.6, sodium 135, AST is 87, ALT is 87, and alk phosphatase is 38. Albumin is stable at 2.1. The random sodium urine was 15 with a normal being 20-110. He is having watery stools. Blood pressure did elevate at one time to 180/110 during the night. Nurse is stating that it was more of an anxiety situation and did resolve to normal limits quickly. OBJECTIVE: VITAL SIGNS: Ron is a pleasant 76-year-old male, TPR is 100.2, 95, 18, blood pressure 173/66. HEENT: Negative. NECK: Supple. HEART: Regular rate and rhythm. LUNGS: Clear. ABDOMEN: Soft, nondistended. Incisions look good. Abdominal binder is on. EXTREMITIES: Without peripheral edema. NG is clamped at the moment. ASSESSMENT: 1. Postoperative ileus. 2. Delayed primary closure, 08/20/2017. 3. EGD and colonoscopy. 4. Biopsies on 08/17/2017, Perez Isaac MD, and for sigmoid colon resection, Dr. Armand Marshall, 08/18/2016. PLAN: 1. Clamp NG, unclamp only p.r.n. 2. Clear liquid diet. 3. Check CBC, CMP, mag, phos in the a.m. If he tolerates the NG clamping, it needs to be discontinued in the a.m., then we will start full liquid diet and plan discharge accordingly. Ignacia Franklin PA-C /[id number]
[2017-08-23] MEDS ORDERED: Metoprolol Tartrate 50 MG Tab PO STA (19:50)
--- NOTE | 2017-08-23 19:56 | PCM.PN ---
- General Info Date of Service: 08/23/17 Functional Status: Reports: Pain Controlled - Review of Systems General: Reports: No Symptoms HEENT: Reports: No Symptoms Pulmonary: Reports: Cough Cardiovascular: Reports: No Symptoms Gastrointestinal: Reports: No Symptoms Genitourinary: Reports: No Symptoms Musculoskeletal: Reports: No Symptoms Neurological: Reports: No Symptoms Psychiatric: Reports: No Symptoms - Patient Data Vitals - Most Recent: Last Vital Signs Temp 100.8 F H 08/23/17 15:37 Pulse 91 08/23/17 15:37 Resp 20 08/23/17 15:37 BP 167/86 H 08/23/17 15:37 Pulse Ox 98 08/23/17 15:37 Weight - Most Recent: 165 lb I&O - Last 24 Hours: Intake & Output 08/23/17 08/23/17 08/23/17 06:59 14:59 22:59 Intake Total 2098 026 4372 Output Total 1305 700 800 Balance 334 140 944 Lab Results Last 24 Hours: Laboratory Results - last 24 hr 08/21/17 08/23/17 08/23/17 Range/Units 04:00 04:35 04:35 WBC 4.1 L (4.5-11.0) K/uL RBC 3.40 L (4.30-5.90) M/uL Hgb 10.6 L (12.0-15.0) g/dL Hct 31.2 L (40.0-54.0) % MCV 92 (80-98) fL MCH 31 (27-31) pg MCHC 34 (32-36) % Plt Count 153 (150-400) K/uL Sodium 135 L (140-148) mmol/L Potassium 3.7 (3.6-5.2) mmol/L Chloride 106 (100-108) mmol/L Carbon Dioxide 20 L (21-32) mmol/L Anion Gap 12.7 (5.0-14.0) mmol/L BUN 12 (7-18) mg/dL Creatinine 0.9 (0.8-1.3) mg/dL Est Cr Clr Drug Dosing 72.76 mL/min Estimated GFR (MDRD) > 60 (>60) Glucose 111 H (74-106) mg/dL Serum Osmolality 255 L (275-295) mOsm/kg Calcium 7.4 L (8.5-10.1) mg/dL Phosphorus 2.6 (2.5-4.9) mg/dL Magnesium 2.1 (1.8-2.4) mg/dL Total Bilirubin 0.4 (0.2-1.0) mg/dL AST 87 H D (15-37) U/L ALT 87 H (12-78) U/L Alkaline Phosphatase 38 L (46-116) U/L Total Protein 5.0 L (6.4-8.2) g/dL Albumin 2.1 L (3.4-5.0) g/dL Globulin 2.9 (2.3-3.5) g/dL Albumin/Globulin Ratio 0.7 L (1.2-2.2) Med Orders - Current: Current Medications Acetaminophen (Tylenol) 650 mg PO Q4H PRN PRN Reason: Other Last Admin: 08/23/17 08:37 Dose: 650 mg Benzocaine/Menthol (Cepacol Sore Throat) 1 lozenge MUCMEM ASDIRECTED PRN PRN Reason: Sore Throat Dimethicone/Zinc Oxide (Rash Relief-Zinc Oxide [place]) 0 gm TOP ASDIRECTED PRN PRN Reason: RASH Last Admin: 08/22/17 15:18 Dose: 1 spray Doxazosin Mesylate (Cardura) 4 mg PO Q24H [facility] Last Admin: 08/22/17 21:14 Dose: 4 mg Hydromorphone HCl (Dilaudid) 1 mg IVPUSH Q2H PRN PRN Reason: Pain Last Admin: 08/23/17 11:20 Dose: 1 mg Potassium Chloride/Dextrose/Sod Cl (D5 Ns With 20 Meq Kcl) 1,000 mls @ 100 mls/ hr IV ASDIRECTED [facility] Last Admin: 08/23/17 11:14 Dose: 100 mls/hr Lorazepam (Ativan) 0.5 mg IVPUSH Q2H PRN PRN Reason: Anxiety Last Admin: 08/19/17 22:15 Dose: 0.5 mg Metoclopramide HCl (Reglan) 10 mg IV Q6H [facility] Last Admin: 08/23/17 16:18 Dose: 10 mg Metoprolol Succinate (Toprol Xl) 300 mg PO DAILY [facility] Metoprolol Tartrate (Lopressor) 50 mg PO ONETIME STA Stop: 08/23/17 19:51 Ondansetron HCl (Zofran) 4 mg IV Q4H PRN PRN Reason: N/V Last Admin: 08/21/17 13:10 Dose: 4 mg Pantoprazole Sodium (Protonix) 40 mg PO ACBREAKFAST [facility] Last Admin: 08/23/17 08:37 Dose: 40 mg Phenol (Phenaseptic Liquid) 0 ml PO Q3H PRN PRN Reason: Pain (mild 1-3) Last Admin: 08/22/17 15:18 Dose: 1 spray Sodium Chloride (Saline Flush) 10 ml FLUSH ONETIME PRN PRN Reason: PER RADIOLOGY PROTOCOL Tamsulosin HCl (Flomax) 0.4 mg PO BEDTIME [facility] Last Admin: 08/22/17 21:14 Dose: 0.4 mg Discontinued Medications Acetaminophen (Tylenol Extra Strength) 1,000 mg PO Q6H [facility] Last Admin: 08/21/17 13:16 Dose: Not Given Alvimopan (Entereg) 12 mg PO ONETIME ONE Stop: 08/18/17 08:01 Last Admin: 08/18/17 07:26 Dose: 12 mg Alvimopan (Entereg) 12 mg PO BID [facility] Last Admin: 08/19/17 22:01 Dose: 12 mg Bisacodyl (Dulcolax) 10 mg PO BID [facility] Last Admin: 08/19/17 22:00 Dose: 10 mg Bupivacaine HCl (Marcaine 0.5%) Confirm Administered Dose 50 ml .ROUTE .STK-MED ONE Stop: 08/20/17 06:42 Last Admin: 08/20/17 07:30 Dose: 10 ml Clonidine HCl (Catapres) 0.1 mg PO ONETIME ONE Stop: 08/17/17 19:20 Last Admin: 08/17/17 19:32 Dose: 0.1 mg Clonidine HCl (Catapres) 0.1 mg PO ONETIME ONE Stop: 08/17/17 23:31 Last Admin: 08/17/17 23:21 Dose: Not Given Clonidine HCl (Catapres) 0.2 mg PO ONETIME ONE Stop: 08/19/17 13:16 Last Admin: 08/19/17 13:20 Dose: 0.2 mg Clonidine HCl (Catapres) 0.2 mg PO ONETIME ONE Stop: 08/19/17 15:11 Last Admin: 08/19/17 15:11 Dose: 0.2 mg Dexamethasone (Dexamethasone) Confirm Administered Dose 4 mg .ROUTE .STK-MED ONE Stop: 08/18/17 06:15 Diphenhydramine HCl (Benadryl) 25 mg IVPUSH Q6H PRN PRN Reason: ITCHING Fentanyl (Sublimaze) Confirm Administered Dose 100 mcg .ROUTE .STK-MED ONE Stop: 08/17/17 11:48 Fentanyl Citrate (Fentanyl) Confirm Administered Dose 500 mcg .ROUTE .STK-MED ONE Stop: 08/18/17 06:15 Furosemide (Lasix) 20 mg IVPUSH ONETIME ONE Stop: 08/19/17 17:16 Last Admin: 08/19/17 17:20 Dose: 20 mg Glycopyrrolate (Robinul) Confirm Administered Dose 1 mg .ROUTE .STK-MED ONE Stop: 08/18/17 06:15 Sodium Chloride (Normal Saline) 1,000 mls @ 100 mls/hr IV ASDIRECTED [facility]ICK Last Admin: 08/17/17 10:07 Dose: 100 mls/hr Dextrose/Lactated Ringer's (Dextrose 5%-Lactated Ringers) 1,000 mls @ 100 mls/ hr IV ASDIRECTED [facility] Last Admin: 08/18/17 02:24 Dose: 100 mls/hr Cefoxitin Sodium 2 gm/ Sodium (Chloride) 50 mls @ 100 mls/hr IV ONETIME ONE Stop: 08/18/17 10:29 Last Admin: 08/18/17 09:49 Dose: 100 mls/hr Fentanyl 2,500 mcg/ Sodium (Chloride) 250 mls @ 0 mls/hr EPIDUR TITRATE CEDRICK; Titrate PRN Reason: Protocol Last Admin: 08/20/17 02:17 Dose: 12 mls/hr, 12 mls/hr Sodium Chloride (Normal Saline) Confirm Administered Dose 10 mls @ as directed .ROUTE .STK-MED ONE Stop: 08/18/17 10:28 Lactated Ringer's (Ringers, Lactated) Confirm Administered Dose 1,000 mls @ as directed .ROUTE .STK-MED ONE Stop: 08/18/17 10:28 Acetaminophen (Ofirmev) Confirm Administered Dose 100 mls @ as directed IV .STK- MED ONE Stop: 08/18/17 10:28 Lactated Ringer's (Ringers, Lactated) Confirm Administered Dose 1,000 mls @ as directed .ROUTE .STK-MED ONE Stop: 08/18/17 11:46 Dextrose/Lactated Ringer's (Dextrose 5%-Lactated Ringers) 1,000 mls @ 175 mls/ hr IV ASDIRECTED [facility] Last Admin: 08/19/17 03:16 Dose: 175 mls/hr Cefoxitin Sodium 2 gm/ Sodium (Chloride) 50 mls @ 100 mls/hr IV Q6H [facility] Stop: 08/19/17 03:59 Last Admin: 08/19/17 03:11 Dose: 100 mls/hr Acetaminophen (Ofirmev) 100 mls @ 400 mls/hr IV Q6H [facility] Stop: 08/19/17 00:14 Last Admin: 08/18/17 23:08 Dose: 400 mls/hr Dextrose/Lactated Ringer's (Dextrose 5%-Lactated Ringers) 1,000 mls @ 80 mls/ hr IV ASDIRECTED [facility] Last Admin: 08/19/17 22:20 Dose: 80 mls/hr Potassium Chloride/Dextrose/Sod Cl (D5 Ns With 20 Meq Kcl) 1,000 mls @ 80 mls/ hr IV ASDIRECTED [facility] Last Admin: 08/21/17 15:35 Dose: 80 mls/hr Magnesium Sulfate 2 gm/ Premix 50 mls @ 25 mls/hr IV Q4H [facility] Stop: 08/20/17 15:30 Last Admin: 08/20/17 13:40 Dose: 25 mls/hr Magnesium Sulfate 2 gm/ Sodium (Chloride) 54 mls @ 27 mls/hr IV Q4H [facility] Stop: 08/22/17 07:59 Last Admin: 08/22/17 05:43 Dose: 27 mls/hr Potassium Phosphate 20 mmole/ (Sodium Chloride) 256.6667 mls @ 86 mls/hr IV Q3H [facility] Stop: 08/21/17 18:59 Last Admin: 08/21/17 16:20 Dose: 86 mls/hr Sodium Chloride (Sodium Chloride 3%) 500 mls @ 30 mls/hr IV ONETIME ONE Stop: 08/22/17 02:39 Last Admin: 08/21/17 15:34 Dose: Not Given Acetaminophen 1,000 mg/ Premix 100 mls @ 400 mls/hr IV Q6H [facility] Stop: 08/22/17 15:01 Last Admin: 08/22/17 15:13 Dose: 400 mls/hr Sodium Chloride (Normal Saline) 74 mls @ 3 mls/sec IV ONETIME ONE Stop: 08/22/17 01:29 Last Admin: 08/22/17 07:46 Dose: Not Given Ibuprofen (Motrin) 600 mg PO Q6H [facility] Last Admin: 08/21/17 09:52 Dose: 600 mg Iopamidol (Isovue-300 (61%)) 112 ml IV . DIRECTED [facility] Stop: 08/22/17 23:00 Lidocaine/Epinephrine (Xylocaine 1% With Epinephrine 1:100,000) Confirm Administered Dose 50 ml .ROUTE .STK-MED ONE Stop: 08/20/17 06:42 Last Admin: 08/20/17 07:30 Dose: 10 ml Meperidine HCl (Demerol) 75 mg IM ASDIRECTED PRN PRN Reason: PAIN Stop: 08/19/17 08:00 Meropenem (Merrem) Confirm Administered Dose 500 mg .ROUTE .STK-MED ONE Stop: 08/18/17 10:51 Last Admin: 08/18/17 12:00 Dose: 500 mg Meropenem (Merrem) Confirm Administered Dose 500 mg .ROUTE .STK-MED ONE Stop: 08/18/17 11:57 Last Admin: 08/18/17 12:04 Dose: 500 mg Meropenem (Merrem) Confirm Administered Dose 500 mg .ROUTE .STK-MED ONE Stop: 08/20/17 06:42 Last Admin: 08/20/17 07:35 Dose: 500 mg Metoprolol Succinate (Toprol Xl) 100 mg PO DAILY [facility] Last Admin: 08/19/17 10:01 Dose: 100 mg Metoprolol Succinate (Toprol Xl) 200 mg PO DAILY [facility] Last Admin: 08/23/17 08:37 Dose: 200 mg Metoprolol Tartrate (Lopressor) 5 mg IVPUSH Q6H [facility] Last Admin: 08/20/17 04:33 Dose: 5 mg Miscellaneous Information (Remove Patch) 1 ea TRDERM ONETIME ONE Stop: 08/21/17 14:01 Last Admin: 08/21/17 15:36 Dose: 1 ea Naloxone HCl (Narcan) 0.1 mg IVPUSH Q5M PRN PRN Reason: RESP RATE LESS THAN 6/MINUTE Neostigmine Methylsulfate (Neostigmine) Confirm Administered Dose 5 mg .ROUTE .STK-MED ONE Stop: 08/18/17 06:15 Ondansetron HCl (Zofran) Confirm Administered Dose 4 mg .ROUTE .STK-MED ONE Stop: 08/18/17 06:15 Pantoprazole Sodium (Protonix Iv) 40 mg IV ONETIME ONE Stop: 08/18/17 16:31 Last Admin: 08/18/17 16:05 Dose: 40 mg Propofol (Diprivan 20 Ml) Confirm Administered Dose 200 mg .ROUTE .STK-MED ONE Stop: 08/17/17 11:48 Propofol (Diprivan 20 Ml) Confirm Administered Dose 200 mg .ROUTE .STK-MED ONE Stop: 08/17/17 11:52 Propofol (Diprivan 20 Ml) Confirm Administered Dose 200 mg .ROUTE .STK-MED ONE Stop: 08/18/17 06:15 Propofol (Diprivan 20 Ml) Confirm Administered Dose 200 mg .ROUTE .STK-MED ONE Stop: 08/20/17 06:22 Propranolol HCl (Inderal) 20 mg PO QID [facility] Last Admin: 08/18/17 09:42 Dose: Not Given Rocuronium [place] (Zemuron) Confirm Administered Dose 50 mg .ROUTE .STK-MED ONE Stop: 08/18/17 06:15 Scopolamine (Transderm-Scop) 1.5 mg TOP Q72H [facility] Stop: 08/21/17 15:45 Last Admin: 08/18/17 15:22 Dose: 1.5 mg Senna/Docusate Sodium (Senna Plus) 2 tab PO BEDTIME [facility] Stop: 08/17/17 21:01 Last Admin: 08/17/17 21:23 Dose: 2 tab Senna/Docusate Sodium (Senna Plus) 2 tab PO DAILY [facility] Last Admin: 08/19/17 08:14 Dose: 2 tab Succinylcholine Chloride (Quelicin) Confirm Administered Dose 200 mg .ROUTE .STK -MED ONE Stop: 08/18/17 06:15 Tramadol HCl (Ultram) 50 mg PO Q4H PRN PRN Reason: Pain Last Admin: 08/21/17 08:04 Dose: 50 mg - Exam General: Alert, Oriented HEENT: Pupils Equal, Pupils Reactive, EOMI, Mucous Membr. Moist/[place] Neck: Supple Lungs: Clear to Auscultation, Normal Respiratory Effort Cardiovascular: Regular Rate, Regular Rhythm Peripheral Pulses: 1+: Radial (L), Radial (R) Skin: Warm, Dry, Intact Psy/Mental Status: Alert, Normal Affect, Normal Mood - Problem List Review Problem List Initiated/Reviewed/Updated: Yes - My Orders Last 24 Hours: My Active Orders 08/23/17 19:50 Metoprolol Tartrate [Lopressor] 50 mg PO ONETIME STA 08/24/17 09:00 Metoprolol Succinate [Toprol XL] 300 mg PO DAILY - Plan Plan:: Assessment/Plan: #1. Colon resection: #2. Hypertension: BP not good control will increase Metoprolol to maximum dose 300 mg daily. #3. Hyponatremia: Resolved.
[2017-08-23] MEDS: Doxazosin 4 MG Tab PO SCH (20:13)
[2017-08-23] MEDS: Tamsulosin 0.4 MG Cap.ER PO SCH (20:16)
[2017-08-24] MEDS: Metoclopramide 10 MG/2 ML SDV IV SCH ×4 (04:27→21:33)
[2017-08-24] MEDS: Dextrose 5%-0.9% NaCl with KCl 1,000 ML IV SCH (07:29)
[2017-08-24] MEDS: Pantoprazole 40 MG Tab.CR PO SCH (07:30)
[2017-08-24] MEDS: Metoprolol Succinate 50 MG Tab.ER PO SCH (08:36)
--- NOTE | 2017-08-24 08:36 | CR ---
Abdomen 2V AP Flat Upright HISTORY: ileus FINDINGS: NG tube passes into the stomach. Midline skin [place] overlie the pelvis. Surgical drain is present with suction bulb overlying the right hip. Surgical staple lines overlie the mid abdomen. Th ere is mild prominence of small bowel loops and colon suggesting postoperative ileus. A small amount of free intraperitoneal gas be seen. This is consistent with the postoperative state. No mass organom egaly can be seen. Anterolateral aspiration noted along the lower thoracic and lumbar spine. Lung bas es are clear. IMPRESSION: Probable postoperative ileus. A small amount of free air is consistent with the postopera tive state.
--- NOTE | 2017-08-24 08:50 | CR ---
Abdomen 2V AP Flat Upright HISTORY: evaluate ileus FINDINGS: There is mild prominence of small bowel loops and colon with scattered air-fluid levels suggesting po stoperative ileus. No obstruction or free air is identified. No soft tissue mass, organomegaly, or ab normal calcifications are seen. Surgical staple lines and midline skin [place] are noted. NG tube pas ses into the stomach and is stable. L1 compression fracture is redemonstrated.. IMPRESSION: Probable postoperative ileus, unchanged compared with exam of 15 hours prior.
--- NOTE | 2017-08-24 08:59 | PCM.PN ---
- General Info Date of Service: 08/24/17 Subjective Update: Feeling better and still having diarrhea. Functional Status: Reports: Pain Controlled - Review of Systems General: Reports: Weakness HEENT: Reports: No Symptoms Pulmonary: Reports: No Symptoms Cardiovascular: Reports: No Symptoms Gastrointestinal: Reports: Diarrhea Genitourinary: Reports: No Symptoms Musculoskeletal: Reports: No Symptoms Skin: Reports: No Symptoms - Patient Data Vitals - Most Recent: Last Vital Signs Temp 99.3 F 08/24/17 08:04 Pulse 88 08/24/17 08:36 Resp 16 08/24/17 08:04 BP 162/87 H 08/24/17 08:36 Pulse Ox 94 L 08/24/17 08:04 Weight - Most Recent: 165 lb I&O - Last 24 Hours: Intake & Output 08/23/17 08/24/17 08/24/17 22:59 06:59 14:59 Intake Total 1744 1650 Output Total 800 955 Balance 944 695 Lab Results Last 24 Hours: Laboratory Results - last 24 hr 08/24/17 08/24/17 Range/Units 04:30 04:30 WBC 5.6 (4.5-11.0) K/uL RBC 3.37 L (4.30-5.90) M/uL Hgb 10.3 L (12.0-15.0) g/dL Hct 31.1 L (40.0-54.0) % MCV 92 (80-98) fL MCH 31 (27-31) pg MCHC 33 (32-36) % Plt Count 171 (150-400) K/uL Sodium 135 L (140-148) mmol/L Potassium 3.9 (3.6-5.2) mmol/L Chloride 104 (100-108) mmol/L Carbon Dioxide 23 (21-32) mmol/L Anion Gap 11.9 (5.0-14.0) mmol/L BUN 9 (7-18) mg/dL Creatinine 0.8 (0.8-1.3) mg/dL Est Cr Clr Drug Dosing 81.86 mL/min Estimated GFR (MDRD) > 60 (>60) Glucose 110 H (74-106) mg/dL Calcium 7.7 L (8.5-10.1) mg/dL Phosphorus 2.2 L (2.5-4.9) mg/dL Magnesium 1.5 L D (1.8-2.4) mg/dL Total Bilirubin 0.5 (0.2-1.0) mg/dL AST 54 H (15-37) U/L ALT 81 H (12-78) U/L Alkaline Phosphatase 38 L (46-116) U/L Total Protein 4.9 L (6.4-8.2) g/dL Albumin 2.0 L (3.4-5.0) g/dL Globulin 2.9 (2.3-3.5) g/dL Albumin/Globulin Ratio 0.7 L (1.2-2.2) Med Orders - Current: Current Medications Acetaminophen (Tylenol) 650 mg PO Q4H PRN PRN Reason: Other Last Admin: 08/23/17 20:14 Dose: 650 mg Benzocaine/Menthol (Cepacol Sore Throat) 1 lozenge MUCMEM ASDIRECTED PRN PRN Reason: Sore Throat Dimethicone/Zinc Oxide (Rash Relief-Zinc Oxide Singer) 0 gm TOP ASDIRECTED PRN PRN Reason: RASH Last Admin: 08/22/17 15:18 Dose: 1 spray Doxazosin Mesylate (Cardura) 4 mg PO Q24H [facility] Last Admin: 08/23/17 20:13 Dose: 4 mg Hydromorphone HCl (Dilaudid) 1 mg IVPUSH Q2H PRN PRN Reason: Pain Last Admin: 08/23/17 11:20 Dose: 1 mg Potassium Chloride/Dextrose/Sod Cl (D5 Ns With 20 Meq Kcl) 1,000 mls @ 100 mls/ hr IV ASDIRECTED [facility] Last Admin: 08/24/17 07:29 Dose: 100 mls/hr Lorazepam (Ativan) 0.5 mg IVPUSH Q2H PRN PRN Reason: Anxiety Last Admin: 08/19/17 22:15 Dose: 0.5 mg Magnesium Oxide (Magnesium Oxide) 400 mg PO ONETIME ONE Stop: 08/24/17 09:01 Last Admin: 08/24/17 08:42 Dose: 400 mg Metoclopramide HCl (Reglan) 10 mg IV Q6H [facility] Last Admin: 08/24/17 04:27 Dose: 10 mg Metoprolol Succinate (Toprol Xl) 300 mg PO DAILY [facility] Last Admin: 08/24/17 08:36 Dose: 300 mg Ondansetron HCl (Zofran) 4 mg IV Q4H PRN PRN Reason: N/V Last Admin: 08/21/17 13:10 Dose: 4 mg Pantoprazole Sodium (Protonix) 40 mg PO ACBREAKFAST [facility] Last Admin: 08/24/17 07:30 Dose: 40 mg Phenol (Phenaseptic Liquid) 0 ml PO Q3H PRN PRN Reason: Pain (mild 1-3) Last Admin: 08/22/17 15:18 Dose: 1 spray Sodium Chloride (Saline Flush) 10 ml FLUSH ONETIME PRN PRN Reason: PER RADIOLOGY PROTOCOL Sodium Phosphate (Neutra-Phos) 250 mg PO ONETIME ONE Stop: 08/24/17 09:01 Last Admin: 08/24/17 08:41 Dose: 250 mg Tamsulosin HCl (Flomax) 0.4 mg PO BEDTIME [facility] Last Admin: 08/23/17 20:16 Dose: 0.4 mg Discontinued Medications Acetaminophen (Tylenol Extra Strength) 1,000 mg PO Q6H [facility] Last Admin: 08/21/17 13:16 Dose: Not Given Alvimopan (Entereg) 12 mg PO ONETIME ONE Stop: 08/18/17 08:01 Last Admin: 08/18/17 07:26 Dose: 12 mg Alvimopan (Entereg) 12 mg PO BID [facility] Last Admin: 08/19/17 22:01 Dose: 12 mg Bisacodyl (Dulcolax) 10 mg PO BID [facility] Last Admin: 08/19/17 22:00 Dose: 10 mg Bupivacaine HCl (Marcaine 0.5%) Confirm Administered Dose 50 ml .ROUTE .STK-MED ONE Stop: 08/20/17 06:42 Last Admin: 08/20/17 07:30 Dose: 10 ml Clonidine HCl (Catapres) 0.1 mg PO ONETIME ONE Stop: 08/17/17 19:20 Last Admin: 08/17/17 19:32 Dose: 0.1 mg Clonidine HCl (Catapres) 0.1 mg PO ONETIME ONE Stop: 08/17/17 23:31 Last Admin: 08/17/17 23:21 Dose: Not Given Clonidine HCl (Catapres) 0.2 mg PO ONETIME ONE Stop: 08/19/17 13:16 Last Admin: 08/19/17 13:20 Dose: 0.2 mg Clonidine HCl (Catapres) 0.2 mg PO ONETIME ONE Stop: 08/19/17 15:11 Last Admin: 08/19/17 15:11 Dose: 0.2 mg Dexamethasone (Dexamethasone) Confirm Administered Dose 4 mg .ROUTE .STK-MED ONE Stop: 08/18/17 06:15 Diphenhydramine HCl (Benadryl) 25 mg IVPUSH Q6H PRN PRN Reason: ITCHING Fentanyl (Sublimaze) Confirm Administered Dose 100 mcg .ROUTE .STK-MED ONE Stop: 08/17/17 11:48 Fentanyl Citrate (Fentanyl) Confirm Administered Dose 500 mcg .ROUTE .STK-MED ONE Stop: 08/18/17 06:15 Furosemide (Lasix) 20 mg IVPUSH ONETIME ONE Stop: 08/19/17 17:16 Last Admin: 08/19/17 17:20 Dose: 20 mg Glycopyrrolate (Robinul) Confirm Administered Dose 1 mg .ROUTE .STK-MED ONE Stop: 08/18/17 06:15 Sodium Chloride (Normal Saline) 1,000 mls @ 100 mls/hr IV ASDIRECTED [facility] Last Admin: 08/17/17 10:07 Dose: 100 mls/hr Dextrose/Lactated Ringer's (Dextrose 5%-Lactated Ringers) 1,000 mls @ 100 mls/ hr IV ASDIRECTED [facility] Last Admin: 08/18/17 02:24 Dose: 100 mls/hr Cefoxitin Sodium 2 gm/ Sodium (Chloride) 50 mls @ 100 mls/hr IV ONETIME ONE Stop: 08/18/17 10:29 Last Admin: 08/18/17 09:49 Dose: 100 mls/hr Fentanyl 2,500 mcg/ Sodium (Chloride) 250 mls @ 0 mls/hr EPIDUR TITRATE [facility]; Titrate PRN Reason: Protocol Last Admin: 08/20/17 02:17 Dose: 12 mls/hr, 12 mls/hr Sodium Chloride (Normal Saline) Confirm Administered Dose 10 mls @ as directed .ROUTE .STK-MED ONE Stop: 08/18/17 10:28 Lactated Ringer's (Ringers, Lactated) Confirm Administered Dose 1,000 mls @ as directed .ROUTE .STK-MED ONE Stop: 08/18/17 10:28 Acetaminophen (Ofirmev) Confirm Administered Dose 100 mls @ as directed IV .[facility] ONE Stop: 08/18/17 10:28 Lactated Ringer's (Ringers, Lactated) Confirm Administered Dose 1,000 mls @ as directed .ROUTE .[facility]-MED ONE Stop: 08/18/17 11:46 Dextrose/Lactated Ringer's (Dextrose 5%-Lactated Ringers) 1,000 mls @ 175 mls/ hr IV ASDIRECTED [facility] Last Admin: 08/19/17 03:16 Dose: 175 mls/hr Cefoxitin Sodium 2 gm/ Sodium (Chloride) 50 mls @ 100 mls/hr IV Q6H [facility] Stop: 08/19/17 03:59 Last Admin: 08/19/17 03:11 Dose: 100 mls/hr Acetaminophen (Ofirmev) 100 mls @ 400 mls/hr IV Q6H [facility] Stop: 08/19/17 00:14 Last Admin: 08/18/17 23:08 Dose: 400 mls/hr Dextrose/Lactated Ringer's (Dextrose 5%-Lactated Ringers) 1,000 mls @ 80 mls/ hr IV ASDIRECTED [facility] Last Admin: 08/19/17 22:20 Dose: 80 mls/hr Potassium Chloride/Dextrose/Sod Cl (D5 Ns With 20 Meq Kcl) 1,000 mls @ 80 mls/ hr IV ASDIRECTED [facility] Last Admin: 08/21/17 15:35 Dose: 80 mls/hr Magnesium Sulfate 2 gm/ Premix 50 mls @ 25 mls/hr IV Q4H [facility] Stop: 08/20/17 15:30 Last Admin: 08/20/17 13:40 Dose: 25 mls/hr Magnesium Sulfate 2 gm/ Sodium (Chloride) 54 mls @ 27 mls/hr IV Q4H [facility] Stop: 08/22/17 07:59 Last Admin: 08/22/17 05:43 Dose: 27 mls/hr Potassium Phosphate 20 mmole/ (Sodium Chloride) 256.6667 mls @ 86 mls/hr IV Q3H [facility] Stop: 08/21/17 18:59 Last Admin: 08/21/17 16:20 Dose: 86 mls/hr Sodium Chloride (Sodium Chloride 3%) 500 mls @ 30 mls/hr IV ONETIME ONE Stop: 08/22/17 02:39 Last Admin: 08/21/17 15:34 Dose: Not Given Acetaminophen 1,000 mg/ Premix 100 mls @ 400 mls/hr IV Q6H [facility] Stop: 08/22/17 15:01 Last Admin: 08/22/17 15:13 Dose: 400 mls/hr Sodium Chloride (Normal Saline) 74 mls @ 3 mls/sec IV ONETIME ONE Stop: 08/22/17 01:29 Last Admin: 08/22/17 07:46 Dose: Not Given Ibuprofen (Motrin) 600 mg PO Q6H [facility] Last Admin: 08/21/17 09:52 Dose: 600 mg Iopamidol (Isovue-300 (61%)) 112 ml IV . DIRECTED [facility] Stop: 08/22/17 23:00 Lidocaine/Epinephrine (Xylocaine 1% With Epinephrine 1:100,000) Confirm Administered Dose 50 ml .ROUTE .STK-MED ONE Stop: 08/20/17 06:42 Last Admin: 08/20/17 07:30 Dose: 10 ml Meperidine HCl (Demerol) 75 mg IM ASDIRECTED PRN PRN Reason: PAIN Stop: 08/19/17 08:00 Meropenem (Merrem) Confirm Administered Dose 500 mg .ROUTE .STK-MED ONE Stop: 08/18/17 10:51 Last Admin: 08/18/17 12:00 Dose: 500 mg Meropenem (Merrem) Confirm Administered Dose 500 mg .ROUTE .STK-MED ONE Stop: 08/18/17 11:57 Last Admin: 08/18/17 12:04 Dose: 500 mg Meropenem (Merrem) Confirm Administered Dose 500 mg .ROUTE .STK-MED ONE Stop: 08/20/17 06:42 Last Admin: 08/20/17 07:35 Dose: 500 mg Metoprolol Succinate (Toprol Xl) 100 mg PO DAILY [facility] Last Admin: 08/19/17 10:01 Dose: 100 mg Metoprolol Succinate (Toprol Xl) 200 mg PO DAILY [facility] Last Admin: 08/23/17 08:37 Dose: 200 mg Metoprolol Tartrate (Lopressor) 5 mg IVPUSH Q6H [facility] Last Admin: 08/20/17 04:33 Dose: 5 mg Metoprolol Tartrate (Lopressor) 50 mg PO ONETIME STA Stop: 08/23/17 19:51 Last Admin: 08/23/17 20:16 Dose: 50 mg Miscellaneous Information (Remove Patch) 1 ea TRDERM ONETIME ONE Stop: 08/21/17 14:01 Last Admin: 08/21/17 15:36 Dose: 1 ea Naloxone HCl (Narcan) 0.1 mg IVPUSH Q5M PRN PRN Reason: RESP RATE LESS THAN 6/MINUTE Neostigmine Methylsulfate (Neostigmine) Confirm Administered Dose 5 mg .ROUTE .STK-MED ONE Stop: 08/18/17 06:15 Ondansetron HCl (Zofran) Confirm Administered Dose 4 mg .ROUTE .STK-MED ONE Stop: 08/18/17 06:15 Pantoprazole Sodium (Protonix Iv) 40 mg IV ONETIME ONE Stop: 08/18/17 16:31 Last Admin: 08/18/17 16:05 Dose: 40 mg Propofol (Diprivan 20 Ml) Confirm Administered Dose 200 mg .ROUTE .STK-MED ONE Stop: 08/17/17 11:48 Propofol (Diprivan 20 Ml) Confirm Administered Dose 200 mg .ROUTE .STK-MED ONE Stop: 08/17/17 11:52 Propofol (Diprivan 20 Ml) Confirm Administered Dose 200 mg .ROUTE .STK-MED ONE Stop: 08/18/17 06:15 Propofol (Diprivan 20 Ml) Confirm Administered Dose 200 mg .ROUTE .STK-MED ONE Stop: 08/20/17 06:22 Propranolol HCl (Inderal) 20 mg PO QID [facility] Last Admin: 08/18/17 09:42 Dose: Not Given Rocuronium Reading (Zemuron) Confirm Administered Dose 50 mg .ROUTE .STK-MED ONE Stop: 08/18/17 06:15 Scopolamine (Transderm-Scop) 1.5 mg TOP Q72H [facility] Stop: 08/21/17 15:45 Last Admin: 08/18/17 15:22 Dose: 1.5 mg Senna/Docusate Sodium (Senna Plus) 2 tab PO BEDTIME [facility] Stop: 08/17/17 21:01 Last Admin: 08/17/17 21:23 Dose: 2 tab Senna/Docusate Sodium (Senna Plus) 2 tab PO DAILY [facility] Last Admin: 08/19/17 08:14 Dose: 2 tab Succinylcholine Chloride (Quelicin) Confirm Administered Dose 200 mg .ROUTE .STK -MED ONE Stop: 08/18/17 06:15 Tramadol HCl (Ultram) 50 mg PO Q4H PRN PRN Reason: Pain Last Admin: 08/21/17 08:04 Dose: 50 mg - Exam General: Alert, Oriented HEENT: Pupils Equal, Pupils Reactive, EOMI, Mucous Membr. Moist/Brady Neck: Supple Lungs: Clear to Auscultation, Normal Respiratory Effort Cardiovascular: Regular Rate, Regular Rhythm Extremities: Normal Inspection, Normal Range of Motion, Non-Tender, No Pedal Edema, Normal Capillary Refill - Problem List Review Problem List Initiated/Reviewed/Updated: Yes - My Orders Last 24 Hours: My Active Orders 08/24/17 09:00 Metoprolol Succinate [Toprol XL] 300 mg PO DAILY - Plan Plan:: Assessment/Plan: #1. Colon resection: #2. Hypertension: BP not good control have increased Metoprolol to maximum dose 300 mg daily. Continue with Cardura. #3. Hyponatremia: Resolved.
[2017-08-24] MEDS ORDERED: Magnesium Oxide 400 MG Tab PO ONE (09:00)
[2017-08-24] MEDS ORDERED: Phosphorus #1 250 MG Tab PO ONE (09:00)
--- NOTE | 2017-08-24 09:15 | CR ---
Abdomen 2V AP Flat Upright HISTORY: evaluate ileus FINDINGS: Bowel gas pattern is nonspecific on today's exam. No obstruction or free air is identified. No soft t issue mass, organomegaly, or abnormal calcifications are seen. Midline skin richmond are again noted o verlying the lower abdomen and pelvis. Surgical staple lines are seen in the midabdomen. NG tube luz ins in satisfactory position. Residual free air under both hemidiaphragms is likely postoperative. Tim ny structures are stable. IMPRESSION: Nonspecific bowel gas pattern. No obstruction or ileus. There is a small amount of free air under eac h hemidiaphragm likely consistent with recent surgery.
--- NOTE | 2017-08-24 09:27 | CR ---
Abdomen 2V AP Flat Upright HISTORY: evaluate ileus FINDINGS: Postoperative changes are stable. Bowel gas pattern is nonspecific. A small amount of free air under the diaphragm is likely postoperative. No obstruction is identified. No soft tissue mass, organomegal y, or abnormal calcifications are seen. Remainder the chest is stable. IMPRESSION: Nonspecific bowel gas pattern. Postoperative changes appear stable. A small amount of free air is red emonstrated. This is likely postoperative.
--- NOTE | 2017-08-24 12:14 | PN ---
DATE OF SERVICE: 08/24/2017 SUBJECTIVE: Ron's NG came out yesterday, he states, when he coughed. He had already been started on the clear liquid diet, and he tolerated that well. Temperature max of 100.9. Dr. Isaac was called with elevated blood pressure, and his medications were adjusted. This morning, he had a phosphorus of 2.2 and magnesium was 1.5. Oral intake in the past 24 hours 2,080, urine output 2,450. TAMERA drain put out 5 mL of a light pink, serosanguineous drainage. REVIEW OF SYSTEMS: Remainder of review of systems negative for any pertinent positives and negatives. OBJECTIVE: GENERAL: Ron is a pleasant 76-year-old male. He is alert and orientated. VITAL SIGNS: TPR 99.3, 88, 16. Blood pressure 162/87. HEENT: Negative. NECK: Supple. HEART: Regular rate and rhythm. LUNGS: Clear. ABDOMEN: Darlene in place. TAMERA drain intact. Abdominal binder is on. EXTREMITIES: Without peripheral edema, and SCDs have been on. ASSESSMENT: 1. EGD, colonoscopy, biopsies on 08/17/2017; Perez Isaac M.D. 2. Sigmoid colon resection, Armand Marshall M.D. on 08/18/2017. 3. Delayed primary closure on 08/20/2017. 4. Postoperative ileus, resolved. PLAN: 1. Consult Case Management for Home Health Care. 2. Dietary consult. 3. Soft diet. 4. Magnesium oxide 400 mg p.o. one time. 5. Neutra-Phos 250 mg p.o. one time. 6. Convert IV to saline lock. 7. Remove Aquacel dressing. 8. Good pulmonary toilet. 9. We will evaluate p.r.n. and in the a.m. Plan discharge in the a.m. Ignacia Franklin PA-C /[id number]
[2017-08-24] MEDS: Tamsulosin 0.4 MG Cap.ER PO SCH (20:24)
[2017-08-24] MEDS: Doxazosin 4 MG Tab PO SCH (20:24)
[2017-08-24] MEDS: Sodium Chloride 0.9% 10 ML Syringe FLUSH PRN ×2 (20:29→21:35)
[2017-08-24] MEDS: Ondansetron 4 MG/2 ML SDV IV PRN (20:30)
[2017-08-25] MEDS: Metoclopramide 10 MG/2 ML SDV IV SCH ×2 (04:13→10:25)
[2017-08-25] MEDS: Pantoprazole 40 MG Tab.CR PO SCH (07:33)
--- NOTE | 2017-08-25 08:08 | DISCH ---
ADMISSION DIAGNOSES: 1. Essential hypertension. 2. Sessile polyps involving right colon and sigmoid. DISCHARGE DIAGNOSES: 1. Exploratory laparotomy with:. a. Right colon resection. b. Rectosigmoid colon resection with coloproctostomy. c. Mobilization of omentum into pelvis due to displaced small bowel in case of postoperative radiation treatment for sessile polyps involving the right colon and sigmoid colon. Date of surgery 08/18/2017. 2. Delayed primary closure for open incision on 08/20/2017. 3. Hypertension, uncontrolled during hospitalization requiring medication adjustments. 4. Hyponatremia, resolved. 5. Postoperative ileus, resolved. HISTORY: Ron Hong is a 76-year-old male, who was noted to have sessile polyps involving the right and left colon. After preoperative discussion of possible risks and possible complications, he wished to proceed with surgical procedure. After preoperative evaluation and discussion of possible risks and possible complications, he wished to proceed with surgical procedure. HOSPITAL COURSE: Ron had his surgery on 08/18/2017. He had no operative complications. On 08/20/2017, he had delayed primary closure. On 08/21/2017, he had an emesis and an NG was placed and he was n.p.o. His NG was clamped and he was started on clear liquid diet. The NG did come out on its own with the patient coughing. He then was advanced on 08/24/2017 to full liquid diet. He tolerated that well. He was having bowel movements. Blood pressures throughout his hospitalization were monitored by Perez Isaac MD, and he will be discharged to home with current medication that he is on. PHYSICAL EXAMINATION: VITAL SIGNS: Ron's vital signs were stable. Pain was well-managed. Activity was good. Oral intake adequate, and blood pressure was maintained at 148 to 171/72 to 99. He did have one blood pressure of 175/102. Ron will be discharged on 08/25/2017 with home health care. PHYSICAL EXAMINATION: GENERAL: Ron Hong is a pleasant 76-year-old male. He is alert and orientated. VITAL SIGNS: Height 5 feet 11 inches, weight is 165 pounds. TPR is 98.5, 87, 16, blood pressure is 148/83. HEENT: Negative. NECK: Supple. HEART: Regular rate and rhythm. LUNGS: Clear. ABDOMEN: Darlene intact. Incision healing well. He has a midline TAMERA drain that he will go home with. Abdominal binder is on. EXTREMITIES: Without peripheral edema. DISPOSITION: Discharged to home with home health care. FOLLOWUP APPOINTMENT: With Peerz Isaac, make an appointment per doctor Isaac's request of when he wants to see him again, Ignacia Franklin PA-C, on 09/02/2017 at 10:00 a.m. HOME MEDICATIONS: Tylenol 650 mg oral q.4 hours p.r.n. pain; Toprol-XL 300 mg p.o. daily, #30; Zofran ODT 4 mg q.6 hours p.r.n. nausea, #30. He is to stop taking Inderal and clonidine or Catapres. DISCHARGE DIET: Mechanical soft, may increase as tolerated. Drink 8-10 glasses of water a day. ACTIVITIES: No lifting over 10 pounds for 6 weeks[address]riving, do not drive on pain medication. May shower. Notify provider if any fever, increased pain, nausea, or vomiting. Keep site clean and dry. Wear abdominal binder for 2 weeks and then as tolerated. Empty TAMERA drain 4 times a day. Use incentive spirometer 10 times every hour while awake for 1 week.
--- NOTE | 2017-08-25 09:16 | PCM.PN ---
- General Info Date of Service: 08/25/17 Subjective Update: He has no complaints presently except hiccups. Functional Status: Reports: Pain Controlled - Review of Systems General: Reports: No Symptoms HEENT: Reports: No Symptoms Pulmonary: Reports: No Symptoms Cardiovascular: Reports: No Symptoms Gastrointestinal: Reports: Diarrhea Genitourinary: Reports: No Symptoms Musculoskeletal: Reports: No Symptoms Skin: Reports: No Symptoms Neurological: Reports: No Symptoms Psychiatric: Reports: No Symptoms - Patient Data Vitals - Most Recent: Last Vital Signs Temp 99.1 F 08/25/17 07:30 Pulse 83 08/25/17 07:30 Resp 16 08/25/17 07:30 BP 166/85 H 08/25/17 07:30 Pulse Ox 94 L 08/25/17 07:30 Weight - Most Recent: 165 lb I&O - Last 24 Hours: Intake & Output 08/24/17 08/25/17 08/25/17 22:59 06:59 14:59 Intake Total 360 150 Output Total 1125 430 Balance -765 -280 Med Orders - Current: Current Medications Acetaminophen (Tylenol) 650 mg PO Q4H PRN PRN Reason: Other Last Admin: 08/23/17 20:14 Dose: 650 mg Benzocaine/Menthol (Cepacol Sore Throat) 1 lozenge MUCMEM ASDIRECTED PRN PRN Reason: Sore Throat Dimethicone/Zinc Oxide (Rash Relief-Zinc Oxide [place]) 0 gm TOP ASDIRECTED PRN PRN Reason: RASH Last Admin: 08/22/17 15:18 Dose: 1 spray Doxazosin Mesylate (Cardura) 4 mg PO Q24H [facility] Last Admin: 08/24/17 20:24 Dose: 4 mg Hydromorphone HCl (Dilaudid) 1 mg IVPUSH Q2H PRN PRN Reason: Pain Last Admin: 08/23/17 11:20 Dose: 1 mg Lorazepam (Ativan) 0.5 mg IVPUSH Q2H PRN PRN Reason: Anxiety Last Admin: 08/19/17 22:15 Dose: 0.5 mg Metoclopramide HCl (Reglan) 10 mg IV Q6H [facility] Last Admin: 08/25/17 04:13 Dose: 10 mg Metoprolol Succinate (Toprol Xl) 300 mg PO DAILY [facility] Last Admin: 08/24/17 08:36 Dose: 300 mg Ondansetron HCl (Zofran) 4 mg IV Q4H PRN PRN Reason: N/V Last Admin: 08/24/17 20:30 Dose: 4 mg Pantoprazole Sodium (Protonix) 40 mg PO ACBREAKFAST [facility] Last Admin: 08/25/17 07:33 Dose: 40 mg Phenol (Phenaseptic Liquid) 0 ml PO Q3H PRN PRN Reason: Pain (mild 1-3) Last Admin: 08/22/17 15:18 Dose: 1 spray Sodium Chloride (Saline Flush) 10 ml FLUSH ONETIME PRN PRN Reason: PER RADIOLOGY PROTOCOL Last Admin: 08/24/17 21:35 Dose: 10 ml Tamsulosin HCl (Flomax) 0.4 mg PO BEDTIME [facility] Last Admin: 08/24/17 20:24 Dose: 0.4 mg Discontinued Medications Acetaminophen (Tylenol Extra Strength) 1,000 mg PO Q6H [facility] Last Admin: 08/21/17 13:16 Dose: Not Given Alvimopan (Entereg) 12 mg PO ONETIME ONE Stop: 08/18/17 08:01 Last Admin: 08/18/17 07:26 Dose: 12 mg Alvimopan (Entereg) 12 mg PO BID [facility] Last Admin: 08/19/17 22:01 Dose: 12 mg Bisacodyl (Dulcolax) 10 mg PO BID [facility] Last Admin: 08/19/17 22:00 Dose: 10 mg Bupivacaine HCl (Marcaine 0.5%) Confirm Administered Dose 50 ml .ROUTE .STK-MED ONE Stop: 08/20/17 06:42 Last Admin: 08/20/17 07:30 Dose: 10 ml Clonidine HCl (Catapres) 0.1 mg PO ONETIME ONE Stop: 08/17/17 19:20 Last Admin: 08/17/17 19:32 Dose: 0.1 mg Clonidine HCl (Catapres) 0.1 mg PO ONETIME ONE Stop: 08/17/17 23:31 Last Admin: 08/17/17 23:21 Dose: Not Given Clonidine HCl (Catapres) 0.2 mg PO ONETIME ONE Stop: 08/19/17 13:16 Last Admin: 08/19/17 13:20 Dose: 0.2 mg Clonidine HCl (Catapres) 0.2 mg PO ONETIME ONE Stop: 08/19/17 15:11 Last Admin: 08/19/17 15:11 Dose: 0.2 mg Dexamethasone (Dexamethasone) Confirm Administered Dose 4 mg .ROUTE .STK-MED ONE Stop: 08/18/17 06:15 Diphenhydramine HCl (Benadryl) 25 mg IVPUSH Q6H PRN PRN Reason: ITCHING Fentanyl (Sublimaze) Confirm Administered Dose 100 mcg .ROUTE .STK-MED ONE Stop: 08/17/17 11:48 Fentanyl Citrate (Fentanyl) Confirm Administered Dose 500 mcg .ROUTE .STK-MED ONE Stop: 08/18/17 06:15 Furosemide (Lasix) 20 mg IVPUSH ONETIME ONE Stop: 08/19/17 17:16 Last Admin: 08/19/17 17:20 Dose: 20 mg Glycopyrrolate (Robinul) Confirm Administered Dose 1 mg .ROUTE .STK-MED ONE Stop: 08/18/17 06:15 Sodium Chloride (Normal Saline) 1,000 mls @ 100 mls/hr IV ASDIRECTED [facility]ICK Last Admin: 08/17/17 10:07 Dose: 100 mls/hr Dextrose/Lactated Ringer's (Dextrose 5%-Lactated Ringers) 1,000 mls @ 100 mls/ hr IV ASDIRECTED [facility] Last Admin: 08/18/17 02:24 Dose: 100 mls/hr Cefoxitin Sodium 2 gm/ Sodium (Chloride) 50 mls @ 100 mls/hr IV ONETIME ONE Stop: 08/18/17 10:29 Last Admin: 08/18/17 09:49 Dose: 100 mls/hr Fentanyl 2,500 mcg/ Sodium (Chloride) 250 mls @ 0 mls/hr EPIDUR TITRATE CEDRICK; Titrate PRN Reason: Protocol Last Admin: 08/20/17 02:17 Dose: 12 mls/hr, 12 mls/hr Sodium Chloride (Normal Saline) Confirm Administered Dose 10 mls @ as directed .ROUTE .STK-MED ONE Stop: 08/18/17 10:28 Lactated Ringer's (Ringers, Lactated) Confirm Administered Dose 1,000 mls @ as directed .ROUTE .STK-MED ONE Stop: 08/18/17 10:28 Acetaminophen (Ofirmev) Confirm Administered Dose 100 mls @ as directed IV .STK- MED ONE Stop: 08/18/17 10:28 Lactated Ringer's (Ringers, Lactated) Confirm Administered Dose 1,000 mls @ as directed .ROUTE .STK-MED ONE Stop: 08/18/17 11:46 Dextrose/Lactated Ringer's (Dextrose 5%-Lactated Ringers) 1,000 mls @ 175 mls/ hr IV ASDIRECTED [facility] Last Admin: 08/19/17 03:16 Dose: 175 mls/hr Cefoxitin Sodium 2 gm/ Sodium (Chloride) 50 mls @ 100 mls/hr IV Q6H [facility] Stop: 08/19/17 03:59 Last Admin: 08/19/17 03:11 Dose: 100 mls/hr Acetaminophen (Ofirmev) 100 mls @ 400 mls/hr IV Q6H [facility] Stop: 08/19/17 00:14 Last Admin: 08/18/17 23:08 Dose: 400 mls/hr Dextrose/Lactated Ringer's (Dextrose 5%-Lactated Ringers) 1,000 mls @ 80 mls/ hr IV ASDIRECTED [facility] Last Admin: 08/19/17 22:20 Dose: 80 mls/hr Potassium Chloride/Dextrose/Sod Cl (D5 Ns With 20 Meq Kcl) 1,000 mls @ 80 mls/ hr IV ASDIRECTED [facility] Last Admin: 08/21/17 15:35 Dose: 80 mls/hr Magnesium Sulfate 2 gm/ Premix 50 mls @ 25 mls/hr IV Q4H [facility] Stop: 08/20/17 15:30 Last Admin: 08/20/17 13:40 Dose: 25 mls/hr Magnesium Sulfate 2 gm/ Sodium (Chloride) 54 mls @ 27 mls/hr IV Q4H [facility] Stop: 08/22/17 07:59 Last Admin: 08/22/17 05:43 Dose: 27 mls/hr Potassium Phosphate 20 mmole/ (Sodium Chloride) 256.6667 mls @ 86 mls/hr IV Q3H [facility] Stop: 08/21/17 18:59 Last Admin: 08/21/17 16:20 Dose: 86 mls/hr Sodium Chloride (Sodium Chloride 3%) 500 mls @ 30 mls/hr IV ONETIME ONE Stop: 08/22/17 02:39 Last Admin: 08/21/17 15:34 Dose: Not Given Acetaminophen 1,000 mg/ Premix 100 mls @ 400 mls/hr IV Q6H [facility] Stop: 08/22/17 15:01 Last Admin: 08/22/17 15:13 Dose: 400 mls/hr Potassium Chloride/Dextrose/Sod Cl (D5 Ns With 20 Meq Kcl) 1,000 mls @ 100 mls/ hr IV ASDIRECTED [facility] Last Admin: 08/24/17 07:29 Dose: 100 mls/hr Sodium Chloride (Normal Saline) 74 mls @ 3 mls/sec IV ONETIME ONE Stop: 08/22/17 01:29 Last Admin: 08/22/17 07:46 Dose: Not Given Ibuprofen (Motrin) 600 mg PO Q6H [facility] Last Admin: 08/21/17 09:52 Dose: 600 mg Iopamidol (Isovue-300 (61%)) 112 ml IV . DIRECTED [facility] Stop: 08/22/17 23:00 Lidocaine/Epinephrine (Xylocaine 1% With Epinephrine 1:100,000) Confirm Administered Dose 50 ml .ROUTE .STK-MED ONE Stop: 08/20/17 06:42 Last Admin: 08/20/17 07:30 Dose: 10 ml Magnesium Oxide (Magnesium Oxide) 400 mg PO ONETIME ONE Stop: 08/24/17 09:01 Last Admin: 08/24/17 08:42 Dose: 400 mg Meperidine HCl (Demerol) 75 mg IM ASDIRECTED PRN PRN Reason: PAIN Stop: 08/19/17 08:00 Meropenem (Merrem) Confirm Administered Dose 500 mg .ROUTE .STK-MED ONE Stop: 08/18/17 10:51 Last Admin: 08/18/17 12:00 Dose: 500 mg Meropenem (Merrem) Confirm Administered Dose 500 mg .ROUTE .STK-MED ONE Stop: 08/18/17 11:57 Last Admin: 08/18/17 12:04 Dose: 500 mg Meropenem (Merrem) Confirm Administered Dose 500 mg .ROUTE .STK-MED ONE Stop: 08/20/17 06:42 Last Admin: 08/20/17 07:35 Dose: 500 mg Metoprolol Succinate (Toprol Xl) 100 mg PO DAILY [facility] Last Admin: 08/19/17 10:01 Dose: 100 mg Metoprolol Succinate (Toprol Xl) 200 mg PO DAILY [facility] Last Admin: 08/23/17 08:37 Dose: 200 mg Metoprolol Tartrate (Lopressor) 5 mg IVPUSH Q6H [facility] Last Admin: 08/20/17 04:33 Dose: 5 mg Metoprolol Tartrate (Lopressor) 50 mg PO ONETIME STA Stop: 08/23/17 19:51 Last Admin: 08/23/17 20:16 Dose: 50 mg Miscellaneous Information (Remove Patch) 1 ea TRDERM ONETIME ONE Stop: 08/21/17 14:01 Last Admin: 08/21/17 15:36 Dose: 1 ea Naloxone HCl (Narcan) 0.1 mg IVPUSH Q5M PRN PRN Reason: RESP RATE LESS THAN 6/MINUTE Neostigmine Methylsulfate (Neostigmine) Confirm Administered Dose 5 mg .ROUTE .STK-MED ONE Stop: 08/18/17 06:15 Ondansetron HCl (Zofran) Confirm Administered Dose 4 mg .ROUTE .STK-MED ONE Stop: 08/18/17 06:15 Pantoprazole Sodium (Protonix Iv) 40 mg IV ONETIME ONE Stop: 08/18/17 16:31 Last Admin: 08/18/17 16:05 Dose: 40 mg Propofol (Diprivan 20 Ml) Confirm Administered Dose 200 mg .ROUTE .STK-MED ONE Stop: 08/17/17 11:48 Propofol (Diprivan 20 Ml) Confirm Administered Dose 200 mg .ROUTE .STK-MED ONE Stop: 08/17/17 11:52 Propofol (Diprivan 20 Ml) Confirm Administered Dose 200 mg .ROUTE .STK-MED ONE Stop: 08/18/17 06:15 Propofol (Diprivan 20 Ml) Confirm Administered Dose 200 mg .ROUTE .STK-MED ONE Stop: 08/20/17 06:22 Propranolol HCl (Inderal) 20 mg PO QID [facility] Last Admin: 08/18/17 09:42 Dose: Not Given Rocuronium [place] (Zemuron) Confirm Administered Dose 50 mg .ROUTE .STK-MED ONE Stop: 08/18/17 06:15 Scopolamine (Transderm-Scop) 1.5 mg TOP Q72H [facility] Stop: 08/21/17 15:45 Last Admin: 08/18/17 15:22 Dose: 1.5 mg Senna/Docusate Sodium (Senna Plus) 2 tab PO BEDTIME [facility] Stop: 08/17/17 21:01 Last Admin: 08/17/17 21:23 Dose: 2 tab Senna/Docusate Sodium (Senna Plus) 2 tab PO DAILY [facility] Last Admin: 08/19/17 08:14 Dose: 2 tab Sodium Phosphate (Neutra-Phos) 250 mg PO ONETIME ONE Stop: 08/24/17 09:01 Last Admin: 08/24/17 08:41 Dose: 250 mg Succinylcholine Chloride (Quelicin) Confirm Administered Dose 200 mg .ROUTE .STK -MED ONE Stop: 08/18/17 06:15 Tramadol HCl (Ultram) 50 mg PO Q4H PRN PRN Reason: Pain Last Admin: 08/21/17 08:04 Dose: 50 mg - Exam General: Alert, Oriented HEENT: Pupils Equal, Pupils Reactive, EOMI, Mucous Membr. Moist/[place] Neck: Supple Lungs: Clear to Auscultation, Normal Respiratory Effort Cardiovascular: Regular Rate, Regular Rhythm GI/Abdominal Exam: Tender Extremities: Normal Inspection, Normal Range of Motion, Non-Tender, No Pedal Edema, Normal Capillary Refill Peripheral Pulses: 1+: Radial (L), Radial (R) Skin: Warm, Dry, Intact Psy/Mental Status: Alert, Normal Affect, Normal Mood - Problem List Review Problem List Initiated/Reviewed/Updated: Yes - My Orders Last 24 Hours: My Active Orders 08/24/17 09:00 Metoprolol Succinate [Toprol XL] 300 mg PO DAILY - Plan Plan:: Assessment/Plan: #1. Colon resection: #2. Hypertension: BP not good control will continue Metoprolol at 300 mg and increase cardura to 8 mg daily. Called to
[2017-08-25] MEDS: Metoprolol Succinate 50 MG Tab.ER PO SCH (10:24)
== END 2017-08-25 10:30 | disposition home health service (06) | DRG 330 ==
LOC: JP.SDS 09:21 → JP.MS 09:21 → EDSTATUS 10:45 → JP.MS 13:00 → JP.2SS 08-18 19:05
PROVIDERS: ADMIT Internal Medicine; ATTEND Surgery
PROC: 0DBK8ZX Excision of Ascending Colon, Via Natural or Artificial Opening Endoscopic, Diagnostic (ICD-10-PCS; 2017-08-17)
PROC: 0DBN8ZX Excision of Sigmoid Colon, Via Natural or Artificial Opening Endoscopic, Diagnostic (ICD-10-PCS; 2017-08-17)
PROC: 0DBF8ZX Excision of Right Large Intestine, Via Natural or Artificial Opening Endoscopic, Diagnostic (ICD-10-PCS; 2017-08-17)
PROC: 0DB68ZX Excision of Stomach, Via Natural or Artificial Opening Endoscopic, Diagnostic (ICD-10-PCS; 2017-08-17)
PROC: 0DTF0ZZ Resection of Right Large Intestine, Open Approach (ICD-10-PCS; principal; 2017-08-18)
PROC: 0DBP0ZZ Excision of Rectum, Open Approach (ICD-10-PCS; 2017-08-18)
PROC: 0DBN0ZZ Excision of Sigmoid Colon, Open Approach (ICD-10-PCS; 2017-08-18)
PROC: 0DNU0ZZ Release Omentum, Open Approach (ICD-10-PCS; 2017-08-18)
PROC: 0D1N0ZP Bypass Sigmoid Colon to Rectum, Open Approach (ICD-10-PCS; 2017-08-18)
PROC: 0WQF0ZZ Repair Abdominal Wall, Open Approach (ICD-10-PCS; 2017-08-20)
DX: D12.2 Benign neoplasm of ascending colon (principal); E87.1 Hypo-osmolality and hyponatremia; K56.7 Ileus, unspecified; D12.5 Benign neoplasm of sigmoid colon; K63.5 Polyp of colon; I10 Essential (primary) hypertension; M19.90 Unspecified osteoarthritis, unspecified site; Z88.8 Allergy status to other drugs, medicaments and biological substances
CPT/HCPCS: 36415; 51798; 74020; 74020-26; 74177; 80048; 80053; 82378; 83735; 83880; 83930; 84100; 84300; 85027; 87081; 87493; 88305; 88307; 93005; 94762; A9270-GY; C9113; J0131; J0330; J0694; J1100; J1170; J1940; J2060; J2185; J2405; J2704; J2710; J2765; J3010; J3475; J3480; J3490; J7040; J7042; J7050; J7120